=== PATIENT | female | born 1945 | race Caucasian/White ===

== ENCOUNTER → 2018-09-13 | Outpatient (CLI) | payer MEDICARE ==
--- NOTE | 2018-09-13 16:49 | BD ---
EXAMINATION TYPE: Axial Bone Density DATE OF EXAM: 09/13/2018 COMPARISON: 2014 CLINICAL HISTORY: disorder of bone M 85.80 Height: 5'4 Weight: 147 FRAX RISK QUESTIONS: History of Fracture in Adulthood: y Secondary Osteoporosis: 3. Menopause before 43: y RISK FACTORS HISTORY OF: Postmenopausal woman: y MEDICATIONS: Additional Medications: generic for neuro tin Additional History: breast cancer, 2004 radiation, chemo EXAM MEASUREMENTS: Bone mineral densitometry was performed using the [employer] System. Bone mineral density as measured about the Lumbar spine is: ----- L1-L4(G/cm2): 1.192 T Score Values are as follows: ----- L2: -0.6 ----- L3: 0.9 ----- L4: 1.1 ----- L1-L4:0.1 Bone mineral density has: Increased 0.6since study of: 10/14/2015 Bone mineral density about the R hip (g/cm2): 0.857 Bone mineral density about the L hip (g/cm2): 0.785 T Score values are as follows: -----R Neck: -1.3 -----L Neck: -1.8 -----R Total: -0.4 -----L Total: -1.2 Bone mineral density has: Decreased -1.4since study: 10/14/2015 since IMPRESSION: Osteopenia (T Score between -2.5 and -1). There is slightly increased risk of fracture and the patient may be considered for treatment. Re-Screen 2-5 years. NOTE: T-SCORE=SD OF THE YOUNG ADULT MEAN.
== END | disposition home or self-care (01) ==
LOC: RADBDWWP 09:50
PROVIDERS: ATTEND Family Medicine
DX: M85.80 Other specified disorders of bone density and structure, unspecified site (principal)
CPT/HCPCS: 77080

== ENCOUNTER → 2019-09-13 | Outpatient (CLI) | payer MEDICARE ==
[2019-09-13 12:54] VITALS: BP 103/64; PULSE 58; RESP 16
--- NOTE | 2019-09-13 13:42 | P.PAINCN ---
History of Present Illness - Reason for Consult Consult date: 09/13/19 - History of Present Illness This is a very pleasant 74 years old female, with one-year history of severe low back pain with radiation to the posterior aspect of the lower extremity medially to the left, the pain is constant and increases with any activity, she denies any initiating event she denies any motor or sensory deficits, she denies any change in the bowel movement or urination, intensity of the pain 6-7/10 incre ases with any activity, she is currently on pain medication Lerona 5/325 when necessary and Neurontin and both medication is not helping enough to control the pain, she denies any side effect of the medication and she is getting prescription refills from her primary care Past Medical History Past Medical History: Cancer, Osteoarthritis (OA) Additional Past Medical History / Comment(s): breast CA 2003, diptheria. Osteopenia History of Any Multi-Drug Resistant Organisms: None Reported Past Surgical History: Breast Surgery, Orthopedic Surgery, Tubal Ligation Additional Past Surgical History / Comment(s): Thumb surgery. Lumpectomy - 2003. Bilateral shoulder Rotator Cuff Repain Past Anesthesia/Blood Transfusion Reactions: No Reported Reaction Past Psychological History: No Psychological Hx Reported Smoking Status: Former smoker Past Alcohol Use History: Rare Additional Past Alcohol Use History / Comment(s): quit smoking 10 yrs. ago, smoked for 40 yrs. Past Drug Use History: None Reported - Past Family History Mother Family Medical History: Cancer Medications and Allergies Home Medications Medication Instructions Recorded Confirmed Type Gabapentin [Neurontin] 300 mg PO DAILY 11/18/15 09/13/19 History Multivit with Calcium,Iron,Min 1 each PO DAILY 11/18/15 09/13/19 History [Women's Daily Multivitamin] Vitamin B Complex 1 each PO DAILY 11/18/15 09/13/19 History Alendronate Sodium 70 mg PO WEEKLY 09/13/19 09/13/19 History Gabapentin [Neurontin] 1,200 mg PO HS 09/13/19 09/13/19 History HYDROcodone/APAP 5-325MG [Lerona 1 tab PO Q6HR PRN 09/13/19 09/13/19 History 5-325] Magnesium 400 mg PO DAILY 09/13/19 09/13/19 History Allergies Allergy/AdvReac Type Severity Reaction Status Date / Time codeine AdvReac Unknown Verified 09/13/19 12:31 Physical Exam Vitals: Vital Signs Pulse Resp BP Pulse Ox 09/13/19 12:38 58 L 16 103/64 98 Intake and Output 09/12/19 09/13/19 09/13/19 22:59 06:59 14:59 Other: Weight 65.771 kg REVIEW OF ORGAN SYSTEMS: CONSTITUTIONAL: No fevers or chills. No recent weight loss. EYES: History of troubles with vision. No glasses. HEENT: No difficulties with hearing. No nosebleeds. No difficulty swallowing. RESPIRATORY: Past pneumonia. Denies any troubles with breathing or dyspnea on exertion. CARDIOVASCULAR: Denies any chest pain, palpitations, or recent heart attacks. GASTROINTESTINAL: Denies fatty food intolerance. Has change in bowel habits and gas bloat. GENITOURINARY: Denies any blood in urine. Has increased urinary frequency. NEUROLOGICAL: Denies any numbness or tingling along the distal extremities. No seizure disorders or headaches. MUSCULOSKELETAL: back pain, no stiffness or joint arthritis. SKIN: Past t skin cancer. No rash. PSYCHIATRIC: Denies current depression or suicidal thoughts. ENDOCRINE: Denies current thyroid disorders. Denies any blood sugar glucose intolerance. HEME/LYMPHATIC: Denies any lumps and bumps around the neck. History of deep venous thrombosis. ALLERGY/IMMUNOLOGY: No immunoglobulin therapy. No immune deficiencies. BREAST: Denies current breast lumps, pain or nipple discharge. Physical Examinations : Constitutiona : Cooperative , not in acute distress . HEENT : nech : supple , no Lymphadenopathy , normal thyroid size . eyes : no ptosis , no icterus, no photophobia . neurologic : Cranial nerve II to XII intact , no focal neurological deffecit . psychatric : alert , oriented X 3 , appropriate affect , intact judgment and insight . Lymphatic : no Lymphadenopathy . musculoskeltal : Lumber spine moter stegnth lower extremities ,thigh and legs 5/5 Right side , 5/5 Left side deep tendon reflexes : normal Knee Jerk , normal ankle Jerk positive lumber facet Loading Test Range of motion of the lumbar spine Flexion 30 degrees, extension 10 degrees strait leg raising test = negative levi aterally Fabere test = negative bilaterally Sever tenderness over the Sacroiliac joint on the R and L sides Results Comments: MRI of the lumbar spine L2-3 , L3 4, L4 5, L5-S1 bulging disc disease and facet arthropathy and some foraminal stenosis at L4 5 Assessment and Plan Plan: Assessment and plan= chronic severe low back pain secondary to lumbar spondylosis with lumbar facet arthropathy, and lumbar degenerative disc disease Patient would be good candidate to have diagnostic medial branch block lumbar area at L2, L3, L4, L5 x2 and if it was positive Then we will proceed with RFA of the medial branch, the patient should continue her current medication Neurontin and Lerona and she is getting prescriptions from her primary care Time with Patient: Greater than 30 PQRS Measure Charge Sheet Measure #130: Documentation of Current Meds in Medical Chart: Patient's medications documented in chart Measure #226: Tobacco Use: Screen & Cessation Intervention: Pt not a tobacco user Measure #111: Pneumonia Vaccination: Pneumococcal vaccine administered or previously received Measure #47: Advance Care Plan: Advance care planning discussed & documented, pt chose/unable to give Measure #412: Opioid Treatment Agreement: No documentation of signed opioid treatment agreement Measure #408: Opioid Therapy Follow-up Evaluation: Patient had NO f/u eval minimum every 3 months during opioid therapy Measure #317: Preventitive Care & Scrn High Bld Press & F/U: Normal blood pressure, f/u not required Measure #128: Body Mass Index (BMI) Screening & Follow-up: BMI documented within normal parameters Measure #131: Pain Assessment & Follow-up: Pain positive & plan documented, Follow-up scheduled Measure #431: Unhealthy Alcohol Use Preventative Care & Scrn: Patient not identified as an unhealthy alcohol user PQRS Narrative: Smoking Status Former smoker Blood Pressure 103/64 Pain Intensity [Bilateral 6 Lower Back] Scale Used Numeric (1 - 10) Hx Alcohol Use (MH) No Home Medications: Ambulatory Orders Gabapentin [Neurontin] 300 mg PO DAILY 11/18/15 Multivit with Calcium,Iron,Min [Women's Daily Multivitamin] 1 each PO DAILY 11/18/15 Vitamin B Complex 1 each PO DAILY 11/18/15 Alendronate Sodium 70 mg PO WEEKLY 09/13/19 Gabapentin [Neurontin] 1,200 mg PO HS 09/13/19 HYDROcodone/APAP 5-325MG [Lerona 5-325] 1 tab PO Q6HR PRN 09/13/19 Magnesium 400 mg PO DAILY 09/13/19
== END | disposition home or self-care (01) ==
LOC: PNWHC3 12:05
PROVIDERS: ATTEND Specialist
DX: M47.816 Spondylosis without myelopathy or radiculopathy, lumbar region (principal); G89.29 Other chronic pain; M46.96 Unspecified inflammatory spondylopathy, lumbar region; M51.36 Other intervertebral disc degeneration, lumbar region; Z87.891 Personal history of nicotine dependence; Z79.899 Other long term (current) drug therapy; Z79.891 Long term (current) use of opiate analgesic
CPT/HCPCS: 99211

== ENCOUNTER 2019-09-20 08:42 | Day surgery (SDC) | payer MEDICARE ==
[2019-09-18 11:24] VITALS: BMI 24.9
[~2019-09-20 08:42] MED LIST: LACTATED RINGERS 1,000 ML IV SCH
[2019-09-20 09:36] VITALS: TEMP 97
[2019-09-20] MEDS ORDERED: LIDOCAINE 1% 20 ML VIAL (10MG/ML) FOR IV START INTRADERMA ONE (09:45)
--- NOTE | 2019-09-20 11:06 | P.PCN ---
Date of Procedure: 09/20/19 Procedure(s) Performed: PREOPERATIVE DIAGNOSIS : 1- Lumbar spondylosis with Facet Arthropathy without myelopathy . 2- Lumber degenerative disc disease POSTOPERATIVE DIAGNOSIS: 1- Lumbar spondylosis with Facet Arthropathy without myelopathy . 2- Lumber degenerative disc disease PROCEDURE: Diagnostic bilateral L2 ,L3 , L4 , and L5 medial branch block under fluoroscopy guidance(fluoroscopy images available in the radiology Department ) (The target point is bilateral facet L3- 4 , L4- 5 , L5-S1 ) ANESTHESIA: Local with Ropivacain 0.5 % 6 ml , moderate sedation with intravenous Versed 1 mg and Fentanyl 50 mcg. EBL: Minimal COMPLICATION: None. IV FLUIDS: 100 mL of normal saline. PROCEDURE INDICATION: Chronic low back pain secondary to Facet arthropathy unresponsive to conservative treatment. PROCEDURE DESCRIPTION: the patient was seen and identified in the preop holding area , risks and benefits and possible complications of the procedure and alternative were discussed with the patient, and the patient agreed to proceed with the procedure and signed the consent IV was started and vital signs monitored during the procedure and fluoroscopy was used to maximize the benefit and accuracy of the needle placement, and sedation was given to decrease patient anxiety, patient was taken to the procedure room and placed in prone position vital signs monitored in the back prepped with chlorhexidine X3 then under strict sterile technique using a right oblique fluoroscopy ,the junction of the transverse process and the superior articulating process of the right L2 , L3 , L4, and [id number] which corresponding to the fluoroscopy image of the eye of the Luis A dog on the block side for the medial branches and subsequently , after local infiltration of skin and subcu tissuies with Ropivacaine 0.5 % , one mL at each level ,then 25-gauge Quincke-type needles , 4 needle was used , each one of them placed at the junction of the base of the transverse process and the superior articular process at the appropriate level, and the needle was advanced until the periosteum contacted, needle placement confirmed with AP oblique and lateral view and after appropriate needle placement confirmed, and after negative aspiration for heme and CSF and there was no paresthesia 2 mL of Ropivacaine 0.5% mixed with 20 mg Depo-Medrol , then half mL injected at each level after negative aspiration the needle subsequently removed and the same procedure repeated for the left side at left side at L2 , L3, L4 and L5 levels. At the end of the procedure and the needles removed and a bandage applied after the skin was cleaned the cleaning solution patient taken to recovery room in stable condition and monitors in the recovery room for 20-30 minutes and discharged home in stable condition after discharge criteria met and patient will follow up with the pain clinic in 2-4 weeks
[2019-09-20] MEDS ORDERED: IV FLUID CONTINUATION 500 ML IV ONE (11:20)
[2019-09-20 11:43] VITALS: BP 118/59; PULSE 62; RESP 18
--- NOTE | 2019-09-20 11:46 | FL ---
EXAMINATION TYPE: FL guided pain mgmt statistic DATE OF EXAM: 09/20/2019 HISTORY: Pain Facet Block Lumbar Bilateral. Dr. Allen. 12 sec fl time. 4 pics scanned
== END 2019-09-20 11:54 | disposition home or self-care (01) ==
LOC: ORPAIN 08:42
PROVIDERS: ATTEND Specialist
DX: G89.29 Other chronic pain (principal); M47.816 Spondylosis without myelopathy or radiculopathy, lumbar region; M51.36 Other intervertebral disc degeneration, lumbar region; M79.605 Pain in left leg; M85.80 Other specified disorders of bone density and structure, unspecified site; Z79.891 Long term (current) use of opiate analgesic; Z85.3 Personal history of malignant neoplasm of breast; Z79.899 Other long term (current) drug therapy; Z79.83 Long term (current) use of bisphosphonates; Z86.19 Personal history of other infectious and parasitic diseases; Z98.890 Other specified postprocedural states; Z98.51 Tubal ligation status; Z87.891 Personal history of nicotine dependence; Z88.5 Allergy status to narcotic agent; Z80.9 Family history of malignant neoplasm, unspecified
CPT/HCPCS: 64493; 64494; 64495; J2250; J1030; J3010; 99152

== ENCOUNTER → 2019-10-11 | Outpatient (CLI) | payer MEDICARE ==
[2019-10-11 11:52] LABS: African American GFR (CKD) >90 (>60 ml/min/1.73 sqM); Blood Urea Nitrogen 14 mg/dL (7-17); Non-African American GFR(CKD) 86 (>60 ml/min/1.73 sqM)
--- NOTE | 2019-10-11 14:22 | CT ---
EXAMINATION TYPE: CT abdomen pelvis w con DATE OF EXAM: 10/11/2019 COMPARISON: NONE HISTORY: 74-year-old female Enlarged lymph nodes seen on US. Right groin area. TECHNIQUE: Contiguous axial scanning of the abdomen and pelvis following administration of 100 ml Iso denise 300 IV contrast. Delayed images through the kidneys and coronal/sagittal reconstructions perform ed. CT DLP: 1181 mGycm Automated exposure control for dose reduction was used. FINDINGS: Heart upper limits of normal in size without pericardial effusion. Lung bases clear without pleural e ffusion. Small hiatal hernia. A couple tiny subcentimeter hypodensities within the liver, one anterior mid liver and one near the g allbladder fossa likely tiny cysts. Portal venous system is patent. Mild prominence to the bile duct at 6 mm, within normal limits given patient's age. Gallbladder, adrenal glands, right kidney, spleen, and atrophic pancreas show no gross abnormality. Small subcentimeter cortical hypodensity anterior upper pole left kidney too small for accurate CT ch aracterization, likely small cortical cyst. Moderate atherosclerotic calcifications infrarenal abdominal aorta and iliac arteries. No dilated small bowel, free fluid, or free air. Scattered nonenlarged mesenteric lymph nodes and a f ew borderline sized mesenteric lymph nodes measuring up to 7 mm, for example, coronal image 31, proba yvonne reactive/post inflammatory. Normal appendix. Scattered mild stool. Oral contrast progressed to the lower descending colon. Mild l eft-sided colonic diverticulosis. No pericolonic inflammatory change. Bladder not distended. Uterus is anteverted. Small left ovary is visualized. Right ovary not clearly delineated. No abnormal fluid collection pelvis or pelvic lymphadenopathy seen. Prominent right inguinal lymph node measures up to 1.5 cm. Bones: Old healed fracture deformity left pubic rami. Osteopenia. Mild degenerative changes at the hi ps, left SI joint, and the left L5 hemisacralization. Hypertrophic facet arthropathy with grade 1 ant erolisthesis at L3-L4 and moderate to severe degenerative disc disease L4-L5. IMPRESSION: 1. BORDERLINE TO MILDLY ENLARGED 1.5 CM (SHORT AXIS) RIGHT INGUINAL LYMPH NODE IS NONSPECIFIC, POSSIB LY REACTIVE/POST INFLAMMATORY. RECOMMEND CLINICAL OR ULTRASOUND FOLLOW-UP TO ENSURE STABILITY OR RESO LUTION. 2. A FEW SCATTERED BORDERLINE SIZED MESENTERIC LYMPH NODES MEASURE UP TO 7 MM. NO DEFINITE SUSPICIOUS ABDOMINAL LYMPHADENOPATHY. 3. LEFT-SIDED COLONIC DIVERTICULOSIS WITHOUT ACUTE DIVERTICULITIS.
== END | disposition home or self-care (01) ==
LOC: RADCTMAIN 10:21
PROVIDERS: ATTEND Family Medicine
DX: K57.30 Diverticulosis of large intestine without perforation or abscess without bleeding (principal); R59.0 Localized enlarged lymph nodes
CPT/HCPCS: 36415; 74177; 82565; 84520

== ENCOUNTER 2019-10-17 08:47 | Day surgery (SDC) | payer MEDICARE ==
[2019-10-16 09:09] VITALS: BMI 24.9
[2019-10-17 09:44] VITALS: TEMP 97.1
[2019-10-17] MEDS: LACTATED RINGERS 1,000 ML IV SCH ×2 (09:51→10:10)
[2019-10-17] MEDS ORDERED: LIDOCAINE 1% 20 ML VIAL (10MG/ML) FOR IV START INTRADERMA ONE (09:51)
[2019-10-17 10:41] VITALS: RESP 16
--- NOTE | 2019-10-17 10:48 | P.PCN ---
Date of Procedure: 10/17/19 Procedure(s) Performed: PREOPERATIVE DIAGNOSIS : Lumbar spondylosis with Facet Arthropathy without myelopathy POSTOPERATIVE DIAGNOSIS: same PROCEDURE: Second Diagnostic lumbar medial branch block with fluoroscopy at L2, L3, L4, L5 [bilateral] which covers facets L3-4, L4-5 and L5-S1 ANESTHESIA: Local anesthetic; moderate IV sedation with Versed 1 mg, sedation time 17 minutes Fluoroscopy was used for the procedure and images were saved in the radiology portion of the chart. Surgeon: Ki Odell MD PROCEDURE INDICATION: Lumbar back pain without radiculopathy, not responsive to conservative management. PROCEDURE DESCRIPTION: the patient was seen and identified in the preop holding area , risks and benefits and possible complications of the procedure and alternatives were discussed with the patient, and the patient agreed to proceed with the procedure and signed the consent . IV was started , vital signs were monitored during the procedure and fluoroscopy was used to maximize the benefit and accuracy of the needle placement, and sedation was given to decrease patient anxiety. Patient was taken to the procedure room and placed in prone position. The lumbar region was prepped using chlorhexidineX-2. Under strict sterile technique using AP fluoroscopy the bilateral sacral ala were identified and using ipsilateral oblique fluoroscopy ,the junction of the transverse process and the superior articulating process of the L3, L4, L5 vertebra which corresponds to the fluoroscopy image of the eye of the Luis A dog for the medial branches were identified. Subsequently, after local infiltration of skin with lidocaine 1% 0.2 mL at each level , a 25-gauge 3.5" Quincke-type needle was placed at the junction of the base of the transverse process and the superior articular process at the appropriate level as well as the sacral ala, and the needle was advanced until the periosteum contacted, needle placement confirmed with AP and oblique fluoroscopy, 0.2 mL of Isovue 200 per level was injected which revealed no vascular uptake and after negative aspiration, 0.5 mL of lidocaine 4 % was injected at each level and the needle subsequently removed . At the end of the procedure and the needles were removed and a bandage applied after the skin was cleaned. The patient was taken to recovery room in stable condition and monitors in the recovery room for 20-30 minutes and discharged home in stable condition after discharge criteria met and patient will follow up in clinic in 2 weeks EBL: Minimal COMPLICATION: None.
[2019-10-17] MEDS ORDERED: IV FLUID CONTINUATION 1,000 ML IV ONE (10:50)
--- NOTE | 2019-10-17 10:52 | FL ---
Fluoroscopy INDICATION: Pain FINDINGS: Fluoroscopy time: 0.07 minutes Images obtained: 3. IMPRESSIONS: 1. Documentation of fluoroscopy.
[2019-10-17 10:57] VITALS: BP 138/81; PULSE 66
== END 2019-10-17 11:08 | disposition home or self-care (01) ==
LOC: ORPAIN 08:47
PROVIDERS: ATTEND Anesthesiology
DX: M47.816 Spondylosis without myelopathy or radiculopathy, lumbar region (principal)
CPT/HCPCS: 64493; 64494; 64495; J2250; Q9966; 99152

== ENCOUNTER → 2019-10-31 | Outpatient (CLI) | payer MEDICARE ==
[2019-10-31 12:59] VITALS: BP 122/70; PULSE 77; RESP 16
--- NOTE | 2019-10-31 14:15 | P.PAINPG ---
Subjective Progress Note Date: 10/31/19 This is a follow-up visit for this 74 years old female with a chronic history of severe low back pain, she is diagnosed with lumbar spondylosis with lumbar facet arthropathy, and lumbar degenerative disc disease, status post diagnostic medial branch block lumbar area, patient reported that her pain improved significantly after each diagnostic medial branch block, and the pain relief was for short- term only, her pain level was 4/10 for the first diagnostic block dropped to 0/10 and the pain relief lasted more than 1 week, and the pain was 7/10 before the second diagnostic block and the pain dropped to 0, and the pain relief lasted for few hours, currently she is complaining of severe low back pain, she denies any motor or sensory deficit she denies any fever or night sweats Objective - Vital Signs Vital signs: Vital Signs Temp Pulse 77 10/31/19 12:56 Resp 16 10/31/19 12:56 BP 122/70 10/31/19 12:56 Pulse Ox 95 10/31/19 12:56 - Exam Physical Examinations : -Constitutiona : Cooperative , not in acute distress . -HEENT : nech : supple , no Lymphadenopathy , normal thyroid size . : eyes : no ptosis , no icterus, no photophobia . - neurologic : Cranial nerve II to XII intact , no focal neurological deffecit . -psychatric : alert , oriented X 3 , appropriate affect , intact judgment and insight . -Lymphatic : no Lymphadenopathy . - musculoskeltal : Lumber spine moter stegnth lower extremities ,thigh and legs 5/5 Right side , 5/5 Left side deep tendon reflexes : normal Knee Jerk , normal ankle Jerk lumber facet Loading Test =positive Right , positive Left Range of motion of the lumbar spine Flexion 30 degrees, extension 10 degrees strait leg raising test = negative bilaterally Fabere test= negative bilaterally mild tenderness over the Sacroiliac joint on the Right , and Left sides . Assessment and Plan Plan: Assessment and plan=chronic and severe low back pain secondary to lumbar spondylosis with lumbar facet arthropathy, lumbar degenerative disc disease Patient had positive results after the diagnostic medial branch block and she remained good candidate to have RFA of the medial branch lumbar area she will be scheduled to have RFA of the left side at L2,L3,L4,L5, later on we will do the right side Time with Patient: Less than 30 PQRS Measure Charge Sheet Measure #130: Documentation of Current Meds in Medical Chart: Patient's medications documented in chart Measure #226: Tobacco Use: Screen & Cessation Intervention: Pt not a tobacco user Measure #111: Pneumonia Vaccination: Pneumococcal vaccine administered or previously received Measure #47: Advance Care Plan: Advance care planning discussed & documented, pt chose/unable to give Measure #412: Opioid Treatment Agreement: No documentation of signed opioid treatment agreement Measure #408: Opioid Therapy Follow-up Evaluation: Patient had NO f/u eval minimum every 3 months during opioid therapy Measure #317: Preventitive Care & Scrn High Bld Press & F/U: Normal blood pressure, f/u not required Measure #128: Body Mass Index (BMI) Screening & Follow-up: BMI documented within normal parameters Measure #131: Pain Assessment & Follow-up: Pain positive & plan documented, Follow-up scheduled Measure #431: Unhealthy Alcohol Use Preventative Care & Scrn: Patient not identified as an unhealthy alcohol user PQRS Narrative: Smoking Status Former smoker Blood Pressure 122/70 Pain Intensity [Back] 7 Hx Alcohol Use (MH) No Home Medications: Ambulatory Orders Gabapentin [Neurontin] 300 mg PO QAM 11/18/15 Multivit with Calcium,Iron,Min [Women's Daily Multivitamin] 1 each PO DAILY 11/18/15 Vitamin B Complex 1 each PO DAILY 11/18/15 Alendronate Sodium 70 mg PO LEWIS 09/13/19 Gabapentin [Neurontin] 1,200 mg PO HS 09/13/19 Magnesium 400 mg PO DAILY 09/13/19 Latanoprost/Pf [Latanoprost 0.005% Eye Drop] 1 drop RIGHT EYE QAM 09/20/19 Cholecalciferol (Vitamin D3) [Vitamin D3] 2,000 unit PO DAILY 10/29/19 Controlled Substance Measures - Controlled Substance Measures Is patient prescribed a controlled substance at discharge?: No
== END | disposition home or self-care (01) ==
LOC: PNWHC3 12:41
PROVIDERS: ATTEND Specialist
DX: M47.816 Spondylosis without myelopathy or radiculopathy, lumbar region (principal); M46.96 Unspecified inflammatory spondylopathy, lumbar region; M51.36 Other intervertebral disc degeneration, lumbar region; G89.29 Other chronic pain; Z87.891 Personal history of nicotine dependence; Z79.891 Long term (current) use of opiate analgesic; Z79.899 Other long term (current) drug therapy
CPT/HCPCS: 99211

== ENCOUNTER 2019-12-04 08:35 | Day surgery (SDC) | payer MEDICARE ==
[2019-11-29 17:19] VITALS: BMI 25.7
[~2019-12-04 08:35] MED LIST changes: +BUPIVACAINE (PF) 0.5% 30 ML VIAL ONE; +MIDAZOLAM 2 MG/2 ML VIAL ONE; +fentaNYL (PF) 50 MCG/ML 2 ML AMP ONE; +methylPREDNISolone ACETATE 40 MG/ML 1 ML VIAL ONE
[2019-12-04 09:00] VITALS: TEMP 98.1
--- NOTE | 2019-12-04 09:49 | P.PCN ---
Date of Procedure: 12/04/19 Procedure(s) Performed: PREOPERATIVE DIAGNOSIS: 1-Lumbar Spondylosis with Facet Arthropathy without myelopathy. 2- Lumber degenerative disc disease POSTOPERATIVE DIAGNOSIS: 1- Lumbar Spondylosis with Facet Arthropathy without myelopathy. 2- Lumber degenerative disc disease PROCEDURES : Left Radiofrequency thermocoagulation,L2 , L3 , L4 , and L5 medial branch, with fluoroscopic guidance (fluoroscopy images available in the radiology department) ( to denervate the facet joint at L3-4 , L4-5 ,and L5-S1 levels ) ANESTHESIA: Moderate sedation with intravenous versed 2 mg and fentaneyl 100 mcg, and local infiltration with Ropivacaine 0.5 % . EBL: Minimal PROCEDURE INDICATION: The patient with low back pain secondary to lumbar facet arthropathy who had more than 50% relief of her pain with previous diagnostic lumbar medial branch block with bupivacaine. PROCEDURE DESCRIPTION / TECHNIQUE: The patient was seen and identified in the preoperative area. Risks, benefits, complications, including but not limited to risk of infection ,bleeding , allergic reactions to the medications and no complete pain releife , and alternatives were discussed with the patient, the patient agreed to proceed with the procedure and signed the consent. IV was started. Vital signs remained stable throughout the procedure. Patient was taken to the OR and time out was completed. The patient was placed in the prone position on the procedure table. The lumber area was prepped and draped in the usual sterile fashion. . Vital signs were closely monitored during the procedure .IV sedation was used during the procedure to decrease patients anxiety. Using AP and then oblique fluoroscopy, the ``eye of the Luis A dog corresponding to the connection between the superior and transverse articular processes of Left L2 , L3, L4, and L5 were identified, marked, and localized with 1% lidocaine. Subsequently, a 18 [id number] radiofrequency cannula with a 10-mm active tip was advanced guided by fluoroscopy to each of the``eyes of the Luis A dog at Left L2 , L3, L4, and L5. Each site then underwent sensory testing at 50 Hz and 0 to 1 volt and motor testing at 2.5 Hz and 0 to 3 volt with local stimulation, but no radicular symptoms down the legs. Thereafter the Left L2 ,L3, L4 , and L5 sites underwent radiofrequency thermocoagulation at 80 degrees celsius for 90 seconds after injecting 0.5 ml of PF Ropivacaine 1ml, then after the thermocoagulation done , 1 ml of the block solution containing Depo-Medrol 40 mg and 3 ml of Ropivacaine 0.5% was injected at the Left L2 ,L3 , L4 , and L5 , levels after negative aspiration of CSF and blood and with no paresthesias. Cannulas were retracted while injecting lidocaine 1% until the needle is out. At the end of the procedure, the skin was cleansed and bandages were applied. COMPLICATIONS: No acute complications. DISPOSITION / PLANS: The patient was placed in a supine position and transferred to the recovery area in a stable condition for observation and was discharged from the recovery room after meeting discharge criteria. Home discharge instructions given to the patient by the staff. The patient was reexamined prior to discharge. The patient will schedule a follow up in the clinic in 2-4 weeks.
[2019-12-04] MEDS ORDERED: IV FLUID CONTINUATION 1,000 ML IV ONE ×2 (09:54)
[2019-12-04 09:58] VITALS: RESP 18
[2019-12-04 10:20] VITALS: BP 137/77; PULSE 56
--- NOTE | 2019-12-04 11:25 | FL ---
Fluoroscopy HISTORY: Pain 18 seconds fluoroscopy time supplied to the referring clinician. 3 intraoperative C-arm images docum ent the procedure. See dictated report from anesthesia.
== END 2019-12-04 10:33 | disposition home or self-care (01) ==
LOC: ORPAIN 08:35
PROVIDERS: ATTEND Specialist
DX: M47.816 Spondylosis without myelopathy or radiculopathy, lumbar region (principal); M51.36 Other intervertebral disc degeneration, lumbar region; Z88.5 Allergy status to narcotic agent
CPT/HCPCS: 64635; 64636; J2250; J1030; J3010; 99152

== ENCOUNTER → 2021-04-30 | Outpatient (CLI) | payer MEDICARE ==
--- NOTE | 2021-04-30 16:42 | BD ---
EXAMINATION TYPE: Axial Bone Density DATE OF EXAM: 04/30/2021 COMPARISON: NONE CLINICAL HISTORY: Height: 64 Weight: 136.3 FRAX RISK QUESTIONS: Alcohol (3 or more units per day): no Family History (Parent hip fracture): no Glucocorticoids (More than 3mos): no (Ex: prednisone, prednisolone, methylprednisolone, dexamethasone, and hydrocortisone). History of Fracture in Adulthood: yes Secondary Osteoporosis: 1. Type 1 Diabetes: no 2. Hyperthyroidism: no 3. Menopause before 45: yes 4. Malnutrition: no 5. Chronic liver disease: no Rheumatoid Arthritis: no Current Tobacco Use: no RISK FACTORS HISTORY OF: History of Wrist Fracture: left When: 2003 Surgery to Spine/Hip(right/left)/Wrist (right/left): no Family History of Osteoporosis: no Active: yes Diet low in dairy products/other sources of calcium: no Postmenopausal woman: age 37 Lost more than 2 inches in height since high school: no MEDICATIONS: gabapentin, calcium Additional History: EXAM MEASUREMENTS: Bone mineral densitometry was performed using the [facility]. Bone mineral density as measured about the Lumbar spine is: ----- L1-L4(G/cm2): 1.174 T Score Values are as follows: ----- L2: -1.1 ----- L3: -0.4 ----- L4: 1.6 ----- L1-L4: -0.1 Bone mineral density has: decreased -3.1 % since study of: 09.13.2018 Bone mineral density about the R hip (g/cm2): 0.872 Bone mineral density about the L hip (g/cm2): 0.824 T Score values are as follows: -----R Neck: -1.2 -----L Neck: -1.5 -----R Total: -0.1 -----L Total: -0.9 Bone mineral density has: increased 4.4 % since study of: 09.13.2018 IMPRESSION: Osteopenia (T Score between -2.5 and -1). There is slightly increased risk of fracture and the patient may be considered for treatment. Re-Screen 2-5 years. NOTE: T-SCORE=SD OF THE YOUNG ADULT MEAN.
== END | disposition home or self-care (01) ==
LOC: RADBDWWP 10:08
PROVIDERS: ATTEND Family Medicine
DX: Z13.820 Encounter for screening for osteoporosis (principal); M85.89 Other specified disorders of bone density and structure, multiple sites; Z78.0 Asymptomatic menopausal state
CPT/HCPCS: 77080

== ENCOUNTER → 2022-03-16 | Outpatient (CLI) | payer MEDICARE ==
--- NOTE | 2022-03-16 22:15 | US ---
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 EXAM MEASUREMENTS: Right Kidney: 8.5 x 3.8 x 5.2 cm Left Kidney: 9.9 x 5.5 x 6.0 cm Right Kidney: No hydronephrosis or masses seen Left Kidney: cyst measures 1.3 x 1.0 x 1.1 cm Bladder: wnl Bilateral Jets seen: Yes There is no evidence for hydronephrosis at this point in time. No nephrolithiasis is seen. There is central 1.3 cm benign thin-walled parapelvic cyst left kidney mid to lower pole level corresponding t o axial image 31 series [address] The urinary bladder is satisfactorily distended. Bilateral u reteral jets are seen. IMPRESSION: No concerning solid or cystic renal mass identified on today's study.
== END | disposition home or self-care (01) ==
LOC: RADUSWWP 12:01
PROVIDERS: ATTEND Family Medicine
DX: D41.00 Neoplasm of uncertain behavior of unspecified kidney (principal)
CPT/HCPCS: 76770

== ENCOUNTER → 2022-06-30 | Outpatient (CLI) | payer MEDICARE ==
--- NOTE | 2022-07-05 08:34 | MM ---
Reason for Exam: Screening (asymptomatic). Last screening mammogram was performed 12 month(s) ago. Patient History: Menarche at age 12. First Full-Term at age 17. Postmenopausal. Breast cancer, right, age 59. Breast cancer, left, age 76. Previous chest radiation therapy at age 59. Previous chemotherapy at age 59. 11/30/2003, Lumpectomy on the Right side. 07/05/2021, Lumpectomy on the Left side. 06/21/2021, Malignant US biopsy breast VAD LT - 2 on the left side. Core Biopsy on the Right side. Excisional Biopsy on the Right side. 10/23/2004, Malignant Stereotactic Core Biopsy on the right side. Maternal aunt had breast cancer, age 40. Mother had breast cancer, age 70. Prior Study Comparison: 03/10/2004 Bilateral Screening Mammogram, [place]. 03/25/2004 Right Special View Mammogram, [facility]. 09/29/2004 Right Special View Mammogram, [facility]. Tissue Density: The breast tissue is heterogeneously dense. This may lower the sensitivity of mammography. Findings: Analyzed By CAD. Postsurgical and posttreatment change on both sides, the left being more recent and this being the first exam after surgery. Recommend 6 month follow-up diagnostic left breast mammogram to assess for any evolving posttreatment change. Benign bilateral oil cyst and vascular calcifications redemonstrated. Otherwise, no significant change. Overall Assessment: Probably benign, BI-RAD 3 Management: Diagnostic Mammogram of the left breast in 6 months. 1. Patient should continue monthly self breast exams. 2. A clinical breast exam by your physician is recommended on an annual basis. 3. This exam should not preclude additional follow-up of suspicious palpable abnormalities. Electronically signed and approved by: Latisha Cobb M.D. Radiologist
== END | disposition home or self-care (01) ==
LOC: RADMAMWWP 12:46
PROVIDERS: ATTEND Internal Medicine Hematology & Oncology
DX: Z12.31 Encounter for screening mammogram for malignant neoplasm of breast (principal); Z78.0 Asymptomatic menopausal state; Z80.3 Family history of malignant neoplasm of breast; Z85.3 Personal history of malignant neoplasm of breast
CPT/HCPCS: 77063; 77067

== ENCOUNTER → 2022-09-10 | Outpatient (CLI) | payer MEDICARE ==
--- NOTE | 2022-09-10 14:49 | CT ---
EXAMINATION TYPE: CT chest w con DATE OF EXAM: 09/10/2022 COMPARISON: None HISTORY: 77-year-old female R93.89, R2 2.9, Z80.3, hx of breast cancer. Surgical hx of lumpectomy. TECHNIQUE: Contiguous axial scanning of the chest after the administration of 70mL mL of Isovue 300. Coronal/sagittal reconstructions performed. CT DLP: 137.30mGycm. Automatic exposure control utilized for a dose reduction. FINDINGS: The breasts show surgical change on both sides, corresponding trabecular and skin thickening on the l eft. Mild pectus excavatum deformity. Heart mildly enlarged without pericardial effusion. Atelectatic aortic root at 3.6 cm. Ectatic ascending aorta 3.7 cm. Mild atherosclerotic arch calcific ations. Conventional arch was a branching anatomy. No thoracic lymphadenopathy by CT size criteria. Lungs show extensive peribronchial vascular and peripheral groundglass changes especially in the mid and lower lungs with some superimposed distortion of the lung parenchyma. There is a 8 mm subpleural pulmonary nodule anteromedial right mid lung with some central calcificati on, suspected calcified granuloma. Dense band of consolidation anterior left upper lobe likely posttreatment cicatricial atelectasis. No pleural effusion. Visualized upper abdomen shows moderate to large stool. Correlate for constipation. Bones: No osseous destructive process. IMPRESSION: 1. Postsurgical and posttreatment change both breasts. Corresponding trabecular and skin thickening o n the left compatible with more recent posttreatment change. A dense band of opacity within the anter ior left upper lobe underlying the left breast likely corresponds to secondary volume loss and scarri ng in the lung. 2. Extensive bilateral mid and lower lung predominant groundglass opacities. Correlate for COVID pneu monia and likely some underlying postinfectious scarring. Follow-up in 2-3 months to assess for any c learance.
== END | disposition home or self-care (01) ==
LOC: RADCTMAIN 09:43
PROVIDERS: ATTEND Family Medicine
DX: R91.8 Other nonspecific abnormal finding of lung field (principal); R93.89 Abnormal findings on diagnostic imaging of other specified body structures; Z80.3 Family history of malignant neoplasm of breast
CPT/HCPCS: 82565; 84520; 71260; 36415; Q9967

== ENCOUNTER → 2022-12-13 | Outpatient (CLI) | payer MEDICARE ==
--- NOTE | 2022-12-13 13:36 | CT ---
EXAMINATION TYPE: CT chest wo con CT DLP: 356 mGycm, Automated exposure control for dose reduction was used. DATE OF EXAM: 12/13/2022 12:36 PM COMPARISON: CT chest 09/10/2022. CLINICAL INDICATION:Female, 77 years old with history of R91.8 OTHER NONSPECIFIC ABNORMAL FINDING OF LUNG F; TECHNIQUE: Multiple axial images were obtained through the chest without IV contrast. Lack of IV or o ral contrast limits evaluation of solid and hollow organ viscera. FINDINGS: LUNGS/ PLEURA: Biapical pleural-parenchymal scarring. Resolution of previously demonstrated bibasilar groundglass opacities. Stable dense band of consolidation anterior left upper lobe likely post treat ment psychiatric or atelectasis. No pleural effusion or pneumothorax. Stable 8 mm subpleural pulmonar y nodule anteromedial right mid lung with some central calcification, suspected calcified granuloma. No new or enlarging pulmonary nodules. AIRWAY: Patent and unremarkable.. HEART: The heart is mildly increased in size.. No pericardial effusion. MEDIASTINUM: No gross evidence of adenopathy. VASCULATURE: No aortic aneurysm. At the sclerotic calcification of the aorta and its branches. MUSCULOSKELETAL: No acute osseous abnormalities. Mild pectus excavatum deformity. No aggressive osseo us lesion. SOFT TISSUES/LYMPH NODES: No axillary adenopathy. Postsurgical changes of both breasts. LOWER NECK: No significant findings. UPPER ABDOMEN: No significant findings. IMPRESSION: 1. Resolution of previously demonstrated extensive bilateral mid and lower lung groundglass opacities . 2. Stable 8 mm right midlung subpleural pulmonary nodule with central calcification, suspect a calcif ied granuloma. No new or enlarging pulmonary nodules. 3. Posttreatment changes of both breasts with the left upper lobe band of consolidation likely repres enting posttreatment change, unchanged.
== END | disposition home or self-care (01) ==
LOC: RADCTMAIN 12:05
PROVIDERS: ATTEND Family Medicine
DX: J98.4 Other disorders of lung (principal); R91.8 Other nonspecific abnormal finding of lung field
CPT/HCPCS: 71250

== ENCOUNTER 2023-07-08 11:43 | Day surgery (SDC) | payer MEDICARE ==
[2023-07-05 15:49] VITALS: BMI 19.7
[2023-07-08] MEDS ORDERED: LIDOCAINE 1% (10MG/ML) FOR IV START INTRADERMA PRN (11:56)
[2023-07-08] MEDS ORDERED: LACTATED RINGERS 1,000 ML IV SCH (11:56)
[2023-07-08 12:13] VITALS: RESP 16; TEMP 97.3
[2023-07-08] MEDS ORDERED: LIDOCAINE 2% INJ 20 MG/ML (2 ML VIAL) ONE (13:26)
[2023-07-08] MEDS ORDERED: PROPOFOL 10 MG/ML 20 ML VIAL IV ONE (13:26)
--- NOTE | 2023-07-08 13:48 | P.PCN ---
Date of Procedure: 07/08/23 Procedure(s) Performed: BRIEF HISTORY: Patient is a 78-year-old pleasant white female scheduled for an elective colonoscopy as a part of value should of chronic diarrhea for the last 3 years duration. She has bowel movements anywhere from 4-10 day which are loose to watery in consistency. No blood or mucus in the stool. PROCEDURE PERFORMED: Colonoscopy With random biopsy PREOPERATIVE DIAGNOSIS:Chronic diarrhea of 23 years duration.]. IV sedation per Anesthesia. PROCEDURE: After informed consent was obtained, the patient, was brought into the endoscopy unit. IV sedation was administered by Anesthesia under continuous monitoring. Digital rectal examination was normal. Initially the Olympus CF-160 flexible video colonoscope was then inserted in the rectum, gradually advanced into the cecum without any difficulty. Careful examination was performed as the scope was gradually being withdrawn. Ileocecal valve and the appendiceal orifice were visualized and appeared normal. Prep was excellent. Mucosa of the cecum, ascending colon, transverse colon, descending colon, sigmoid colon, and rectum appeared normal. random biopsies were done from ascending and descending colon to rule out microscopic/collagenous colitis. Scattered sigmoid diverticulosis. Retroflexion was performed in the rectum and no lesions were seen. The patient tolerated the procedure well. IMPRESSION: Normal-appearing colon from rectum to cecum no evidence of colorectal neoplasia Scattered sigmoid diverticulosis . RECOMMENDATIONS: Findings of this examination were discussed with the patientas well as a family. she was advised to follow with the biopsies and she'll be seen in office in 2-3 weeks..
[2023-07-08 14:11] VITALS: BP 89/72; PULSE 67
== END 2023-07-08 14:40 | disposition home or self-care (01) ==
LOC: ORWHC2ENDO 11:43
PROVIDERS: ATTEND Internal Medicine Gastroenterology
DX: K52.832 Lymphocytic colitis (principal); M19.90 Unspecified osteoarthritis, unspecified site; K57.30 Diverticulosis of large intestine without perforation or abscess without bleeding; Z79.899 Other long term (current) drug therapy; Z79.811 Long term (current) use of aromatase inhibitors; Z88.8 Allergy status to other drugs, medicaments and biological substances
CPT/HCPCS: 88305; 45380; J2704; J2001

== ENCOUNTER → 2024-01-09 | Outpatient (CLI) | payer MEDICARE ==
--- NOTE | 2024-01-09 09:07 | US ---
EXAMINATION TYPE: US arterial LE single level DATE OF EXAM: 01/09/2024 8:40 AM CLINICAL INDICATION: Female, 78 years old with history of I73.9 PERIPHERAL VASCULAR DISEASE, UNSPECIF IED; right hip and leg pain, symptoms relate to lumbar spine surgery that she is having soon History of: Smoker: previous 20 years ago Hypertension: n Diabetic: n Hyperlipidemia: n TIA/CVA: n Previous Vascular Surgery: n CAD: n KS: n Vascular Ulcers: n Claudication: n Gangrene: n Doppler Waveforms: Right: Multiphasic Left: Multiphasic Right Brachial Pressure: 127 Left Brachial Pressure: 127 Ankle-Brachial Indices: Right: 1.1 Left: 1.1 Toe Brachial Indices: Right: 0.3 Left: 0.3 IMPRESSION: 1. Ankle-brachial indices within normal limits. 2. Toe brachial indices suggestive of severe disease.
== END | disposition home or self-care (01) ==
LOC: RADUSWWP 08:14
PROVIDERS: ATTEND Family Medicine
DX: I73.9 Peripheral vascular disease, unspecified (principal)
CPT/HCPCS: 93922

== ENCOUNTER → 2024-01-09 | Outpatient (CLI) | payer MEDICARE ==
[2024-01-09 10:00] LABS: Partial Thromboplastin Time 25.6 sec (22.0-30.0); Prothrombin Time 11.2 sec (10.0-12.5)
--- NOTE | 2024-01-09 10:15 | XR ---
EXAMINATION TYPE: XR chest 2V DATE OF EXAM: 01/09/2024 9:38 AM CLINICAL INDICATION:Female, 78 years old with history of Z01.818 pre surgical testing; [facility] COMPARISON: Chest radiographs from 05/14/2013 TECHNIQUE: XR chest 2V Frontal and lateral views of the chest. FINDINGS: Lungs/Pleura: There is no evidence of pleural effusion, focal consolidation, or pneumothorax. Pulmonary vascularity: Unremarkable. Heart/mediastinum: Cardiomediastinal silhouette is unremarkable. Musculoskeletal: No acute osseous pathology. Other findings: Surgical clips project over the breast. IMPRESSION: No acute cardiopulmonary disease/process.
[2024-01-09 14:53] LABS: Basophils # (A) 0.12 X 10*3/uL (0.00-0.10); Basophils % (A) 2.3 %; Eosinophils # (A) 0.69 X 10*3/uL (0.04-0.35); Eosinophils % (A) 13.1 %; HCT 38.8 % (37.2-46.3); HGB 12.8 g/dL (12.0-15.0); Lymphocytes # (A) 0.77 X 10*3/uL (0.90-5.00); Lymphocytes % (A) 14.7 %; MCH 32.3 pg (27.0-32.0); Mean Platelet Volume 10.8 FL (9.5-12.2); Monocytes # (A) 0.51 X 10*3/uL (0.20-1.00); Monocytes % (A) 9.7 %; NRBC Per 100 WBC 0 X 10*3/uL (0.00-0.01); Neutrophils # (A) 3.15 X 10*3/uL (1.80-7.70); Platelet Count 217 X 10*3/uL (140-440); RBC 3.96 X 10*6/uL (4.10-5.20); RDW 12.2 % (11.5-14.5); WBC 5.25 X 10*3/uL (4.50-10.00)
[2024-01-09 15:28] LABS: BUN/Creat Ratio 16.12 Ratio (12.00-20.00); Blood Urea Nitrogen 12.9 mg/dL (9.0-27.0); Calcium 10.1 mg/dL (8.7-10.3); Carbon Dioxide 30.5 mmol/L (21.6-31.8); Chloride 102 mmol/L (96-109); Glucose 80 mg/dL (70-110); Potassium 4.3 mmol/L (3.5-5.5); Sodium 144 mmol/L (135-145)
[2024-01-09 15:35] LABS: Appearance,Urine Clear (Clear); Bilirubin,Urine Negative (Negative); Blood,Urine Negative (Negative); Color,Urine Yellow (Yellow); Ketones,Urine Negative (Negative); Nitrite,Urine Negative (Negative); Specific Gravity,Urine 1.005 (1.001-1.030); Urobilinogen,Urine 0.2 E.U./DL
== END | disposition home or self-care (01) ==
LOC: LABPAT 08:44
PROVIDERS: ATTEND Orthopaedic Surgery Orthopaedic Surgery of the Spine
DX: Z01.812 Encounter for preprocedural laboratory examination (principal); Z22.322 Carrier or suspected carrier of Methicillin resistant Staphylococcus aureus; M43.10 Spondylolisthesis, site unspecified; I49.8 Other specified cardiac arrhythmias; I23.2 Ventricular septal defect as current complication following acute myocardial infarction; R94.31 Abnormal electrocardiogram [ECG] [EKG]
CPT/HCPCS: 71046; 80048; 81003; 85025; 85610; 85730; 86850; 86900; 86901; 87070; 93005

== ENCOUNTER 2024-01-18 09:41 | Observation (INO) | payer MEDICARE ==
[2024-01-16 09:35] VITALS: BMI 19.7
[2024-01-18] MEDS ORDERED: fentaNYL (PF) 50 MCG/ML 2 ML AMP IV PRN (09:57)
[2024-01-18] MEDS: LACTATED RINGERS 1,000 ML IV SCH (10:04)
[2024-01-18] MEDS: ONDANSETRON 4 MG/2 ML VIAL IVP ONE (10:28)
[2024-01-18] MEDS ORDERED: PHENYLEPHRINE-0.9% NACL SYG 1,000 MCG/10 ML SYRINGE ONE (10:57)
[2024-01-18] MEDS ORDERED: SUCCINYLCHOLINE CHLORIDE 200 MG/10 ML VIAL IV ONE (10:57)
[2024-01-18] MEDS ORDERED: HYDROmorphone (PF) 1 MG/ML ONE (10:57)
[2024-01-18] MEDS ORDERED: fentaNYL (PF) 50 MCG/ML 2 ML AMP ONE (10:57)
[2024-01-18] MEDS ORDERED: PROPOFOL 10 MG/ML 20 ML VIAL IV ONE (10:57)
[2024-01-18] MEDS ORDERED: ROCURONIUM 10 MG/ML (5 ML VIAL) IV ONE (10:57)
[2024-01-18] MEDS ORDERED: MIDAZOLAM 2 MG/2 ML VIAL ONE (10:57)
[2024-01-18] MEDS ORDERED: LIDOCAINE 1% INJ 10MG/ML (20 ML MDV) ONE (10:57)
[2024-01-18] MEDS: ceFAZolin 1,000 MG in SODIUM CHLORIDE 0.9% IRRIGATIO 1,000 ML IRRIGATION PRN (11:02)
[2024-01-18] MEDS: LIDOCAINE 2%-EPI 1:100,000 20 ML VIAL SQ ONE ×2 (11:02→11:38)
[2024-01-18] MEDS: GELATIN SPONGE,ABSORB (LARGE) 1 EACH SPONGE TOPICAL ONE (11:02)
[2024-01-18] MEDS: THROMBIN (BOVINE) 5,000 UNIT VIAL TOPICAL ONE (11:02)
[2024-01-18] MEDS: BUPIVACAINE (PF) 0.25% 30 ML VIAL SQ ONE ×2 (11:02→11:38)
[2024-01-18] MEDS: LACTATED RINGERS 1,000 ML IV ONE ×2 (13:47→14:21)
[2024-01-18] MEDS ORDERED: ACETAMINOPHEN TAB 325 MG TAB PO PRN (14:45)
[2024-01-18] MEDS ORDERED: BENZOCAINE/MENTHOL LOZENG 1 EACH LOZENGE MUCOUS MEM PRN (14:45)
[2024-01-18] MEDS ORDERED: traMADol 50 MG TAB PO PRN (14:45)
[2024-01-18] MEDS ORDERED: PSYLLIUM HUSK 100% 6 GM PACKET PO PRN (14:49)
--- NOTE | 2024-01-18 14:55 | P.OP ---
Date of Procedure: 01/18/24 Preoperative Diagnosis: Spondylolisthesis L3-4, spinal stenosis L3-4 L4-5, degenerative disc disease, lower extreme radiculopathy, lower extremity weakness, facet arthrosis Postoperative Diagnosis: Same Anesthesia: GETA Pathology: none sent Condition: stable Disposition: PACU Description of Procedure: DESCRIPTION OF PROCEDURE(S): BRIEF OPERATIVE NOTE Preoperative Diagnosis: Spondylolisthesis L3-4, spinal stenosis L3-4 L4-5, degenerative disc disease, lower extreme radiculopathy, lower extremity weakness, facet arthrosis Postoperative Diagnosis: Same Procedure: Laminectomy and decompression L3-4 L4-5 beyond the scope of preparation for fusion with bilateral foraminotomies partial medial facetectomy on the right Computer CT navigation aided Minimally invasive Posterior lateral decompression and facet fusion L3-4 L4-5 Minimally invasive Transforaminal lumbar interbody fusion for a 360 fusion L3-4 L4-5 Discectomy for decompression L3-4 L4-5 beyond the scope of preparation for fusion Placement of interbody graft L3-4 L4-5 Use of computer navigation for fusion Local autogenous bone grafting Aspiration of bone marrow from the vertebral body pedicle L3 on the right Use of bone graft extenders Surgeon: Dr. Cagle Enamel Applier: Eliu CHAPA who is present throughout the entire the case persistence during positioning, dissection, exposure, visualization, and all crucial elements of the case as well as closure. Anesthesia: General anesthesia per Dr. Lane Estimated blood loss: Approximately 200 mL Complications: None apparent Components implanted: K2M minimally invasive [place] pedicle screw system withscrews measuring 5.5 mm and 6.5 mm in diameter to rods one expandable interbody cage and 1 [place] interbody cage with 10 mL of osteo amp bio4 bone graft substitute and 30 mL of the BX bone fibers to supplement the local autogenous bone graft and bone marrow aspirate Disposition: To recovery room in good stable condition. OPERATIVE INDICATIONS The patient has had severe issues at their lower extremity in her lower back over the past several years with significant worsening over the past several months. Over the past few months the patient had pain at their back and their lower extremities. The patient is having severe radicular symptoms at their lower extremity with weakness. The patient is having significant pain in their back. They are unable to obtain any comfort. We did aggressive conservative treatment with medications therapy and interventional pain management however thery were not having any relief. The patient also showed evidence of a listhesis with some dynamic instability. She had significant degenerative changes which correlated well with her low back and lower extremity symptoms. There is significant listhesis at L3-4 and evidence of severe stenosis L3-4 and L4-5. The patient has been through conservative treatment. We discussed various treatment options including surgery, and the patient wishes to proceed with surgery We discussed the risk, patient's alternatives and benefits of surgery including but not limited to, risk of bleeding risk of infection, risk of need for further surgery, risk of decreased, loss of motion, muscle function, malunion nonunion, hardware failure, nerve damage, paralysis, heart attack, blindness and . They understood issues with the current pandemic and the possibility of exposure. OPERATIVE SUMMARY After discussing all the risks, patient alternatives and benefits at length, the patient elected to proceed with surgical intervention, signed informed consent, and presented for their procedure. The patient was seen and examined in the preoperative holding area and the surgical site was marked. The patient was given antibiotics and brought to the operating room. The patient was sedated and intubated by anesthesia in standard fashion. The patient was positioned on to the operating room table in a prone position on the appropriate frame which was well-padded and well molded. We were careful to pad any bony prominences and pressure points. We were careful to maintain the patient's cervical spine and good neutral alignment and position throughout. The patient was prepped and draped in a normal standard fashion. An appropriate timeout and keystone protocol performed. We were able to proceed with the surgery. The local wound area was infiltrated with local anesthetic. Over the right iliac crest I was able to make small stab incisions and establish a guidepin screw fixation to the iliac crest 2. I was able place the computer referencing device over the guidepins to establish an appropriate reference point for the Ziem CT navigation. We then were able to place patient in an appropriate drape and do a navigation spin for visualization and 3-D reconstruction of the lumbar spine. I was able utilize C-arm guidance and navigation to establish appropriate position over the pedicles bilaterally at the appropriate levels at L3-4 and 5. With the appropriate levels confirmed was able to make small incisions over the appropriate pedicle sites bilaterally. Utilizing the computer navigation device I was able to establish bony landmarks at the right iliac crest for a bony reference point for the navigation device. I was able to establish a Jamshidi needle over the lateral aspect of the pedicle and advanced the trocar into the pedicle being careful not to breech superiorly inferiorly medially or laterally using computer navigation device. Position was confirmed regularly with AP and lateral images on C-arm and with the computer navigation device at the appropriate levels bilaterally at L3-4 and 5. I was able to establish the trocar into the pedicle appropriately into the posterior aspect of the vertebral body bilaterally at the appropriate levels. This was done at each of the pedicle positions and each of the vertebrae. At the superior vertebrae of L3 on the right I was able to take approximately 25 mL of bone aspiration for use later in the case to supplement the allograft and autograft bone. I was able place the guidewire into the trocar and into the vertebral body appropriately under C-arm guidance. Dissection was taken down over the wire to the appropriate starting position for the screw placed. The appropriate length screw was chosen, threaded over the guidewire and screwed appropriately into the pedicle and vertebral body under C-arm guidance in excellent alignment and position with good bony purchase. This is done at each of the screw sites at the appropriate levels at L3-4 and 5. With the screws intact I extended the incision to connect the screw hole sites on the most symptomatic side on the right. I dissected down to establish access over the pars and lamina to the base of the spinous process. I was able to expose the facet joint. There is evidence of severe facet arthrosis bilaterally at L3-4 and L4-5 and large osteophytes were taken down. On the right side I proceeded with the further complete facetectomy. The capsule the facet was taken down and showed some facet arthrosis at the joint. I was able to use a combination of curettes and Kerrison rongeurs and a high-speed drill to take down the facet joint and do a facetectomy. I was able get excellent foraminal decompression and central decompression with undermining across midline to perform a laminectomy centrally and contralaterally. I was able get good central decompression at each level. The ligamentum flavum was taken down to further decompress centrally and at bilateral neural foramen. I was able to expose the disc space and visualize the traversing nerve root. Note was made of some disc protrusion and disc herniation that was abutting the traversing nerve root at the level causing further compression of the nerve root. I was able to establish a annulotomy at the appropriate level protecting soft tissue and neural structures. Note was made of some disc desiccation at the disc. I performed a complete discectomy with accommodation of curettes and rasps and scrapers. I was able get good endplate preparation at the disc space. I sized for the appropriate size interbody spacer protecting the soft tissue and neural structures. The wound was copiously irrigated and suctioned dry. There is no evidence of any dural tear or leak. I was able to pack the disc space with local autogenous bone graft as well as a small amount of bone graft which was also placed into the interbody cage itself. Protecting the soft tissue structures and neural structures I was able place the interbody cage in good alignment and good position with good fit and fill at the interbody space. Position was confirmed with C-arm guidance. Good hemostasis maintained. There is no evidence of any dural tear or leak. The wound was irrigated and suctioned dry. With the hardware intact, intraoperative C-arm imaging was again taken which showed good alignment and position of the hardware at the appropriate levels at L3-L4 and L5. We were then able to measure, contour and place the rods and appropriate hardware bilaterally. I was able to place capcrews, tighten them down, and torque them with the torque screwdriver appropriately. With this intact I was able to place the local autogenous bone graft with additional bone graft enhancer as necessary into the posterior lateral gutters over the decorticated transverse processes and facet joints on the contralateral side. The remainder of the bone graft was placed over the facet joint on the contralateral side after taking down the facet joint capsule. With the bone graft intact, a stable construct, and good decompression at the appropriate levels, we were able to proceed with closure. Good hemostasis was maintained. There is no evidence of dural tear or leak. The fascia was closed for a watertight closure. he subcuticular tissue was closed with absorbable suture. The wound was cleaned and dried and dressed with the appropriate dressing. The drapes were broken down. The patient was gently rolled back onto their hospital bed being careful to maintain their cervical spine and good neutral alignment and position. They were woken up by anesthesia, extubated, and brought to the recovery room in good stable condition. The patient will be admitted to the hospital for appropriate postoperative care, medical management and monitoring. We will continue to follow them closely about the postoperative course.
--- NOTE | 2024-01-18 14:58 | FL ---
EXAMINATION TYPE: FL guidance operating room, XR lumbar spine 2 or 3V Intraoperative/procedural fluor oscopic services were provided. Total fluoroscopy time is 27 seconds with a total of 5 submitted imag es to PACS. Please see the operative/procedural note for further details. DAP: 1568 cGycm2
[2024-01-18] MEDS: HYDROmorphone 0.5 MG/0.5 ML SYRINGE IVP ONE ×3 (15:17→15:51)
[2024-01-18] MEDS: MEPERIDINE 50 MG/ML SYRINGE IVP ONE (16:18)
[2024-01-18] MEDS: HYDROcodone/APAP 5-325MG 1 EACH TAB PO PRN (17:51)
[2024-01-18] MEDS: GABAPENTIN 300 MG CAP PO SCH (20:28)
[2024-01-18] MEDS: MELATONIN 5 MG TABLET PO SCH (20:28)
[2024-01-18] MEDS: POTASSIUM CHLORIDE ER 10 MEQ TAB.ER.PRT PO SCH (20:28)
[2024-01-18] MEDS: MAGNESIUM OXIDE 400 MG TAB PO SCH (20:28)
[2024-01-18] MEDS: HYDROmorphone 0.5 MG/0.5 ML SYRINGE IVP PRN (20:29)
[2024-01-18] MEDS: CYCLOBENZAPRINE 5 MG TAB PO PRN (23:50)
[2024-01-19] MEDS: HYDROmorphone 1 MG/ML 1 ML SYRINGE IVP PRN (00:46)
[2024-01-19] MEDS: SODIUM CHLORIDE 0.9% 1,000 ML IV SCH (00:46)
[2024-01-19] MEDS: BRIMONIDINE TARTRATE 0.2% DROPS 5 ML BTL RIGHT EYE SCH (02:47)
[2024-01-19] MEDS: MULTIVITAMINS, THERA 1 EACH TAB PO SCH (07:52)
[2024-01-19] MEDS: SENNOSIDES-DOCUSATE SODIUM 1 EACH TAB PO SCH (07:53)
[2024-01-19] MEDS: LATANOPROST 0.005% OPHTH DROPS 2.5 ML BTL RIGHT EYE SCH (07:53)
[2024-01-19] MEDS: GABAPENTIN 300 MG CAP PO SCH (07:53)
[2024-01-19] MEDS: CALCIUM CARBONATE 500 MG CHEWABLE PO SCH (07:53)
[2024-01-19 08:43] LABS: BUN/Creat Ratio 13.29 Ratio (12.00-20.00); Blood Urea Nitrogen 9.3 mg/dL (9.0-27.0); Carbon Dioxide 25.6 mmol/L (21.6-31.8); Chloride 100 mmol/L (96-109); Glucose 86 mg/dL (70-110); Potassium 3.7 mmol/L (3.5-5.5); Sodium 137 mmol/L (135-145)
[2024-01-19 08:44] LABS: Calcium 8.1 mg/dL (8.7-10.3)
[2024-01-19 08:49] LABS: Basophils # (A) 0.05 X 10*3/uL (0.00-0.10); Basophils % (A) 0.6 %; Eosinophils # (A) 0.35 X 10*3/uL (0.04-0.35); Eosinophils % (A) 4.3 %; HGB 10.3 g/dL (12.0-15.0); Lymphocytes # (A) 0.64 X 10*3/uL (0.90-5.00); Lymphocytes % (A) 7.9 %; MCH 32.3 pg (27.0-32.0); MCHC 33.2 g/dL (32.0-37.0); MCV 97.2 FL (80.0-97.0); Mean Platelet Volume 11.2 FL (9.5-12.2); Monocytes # (A) 0.77 X 10*3/uL (0.20-1.00); Monocytes % (A) 9.5 %; NRBC Per 100 WBC 0 X 10*3/uL (0.00-0.01); Neutrophils # (A) 6.27 X 10*3/uL (1.80-7.70); Neutrophils % (A) 77.3 %; Platelet Count 177 X 10*3/uL (140-440); RBC 3.19 X 10*6/uL (4.10-5.20); RDW 12.3 % (11.5-14.5); WBC 8.11 X 10*3/uL (4.50-10.00)
[2024-01-19] MEDS ORDERED: ALBUTEROL NEBULIZED 2.5 MG/3 ML INHALATION PRN (09:43)
--- NOTE | 2024-01-19 09:46 | P.PN ---
Progress Note - Text Progress Note Date: 01/19/24 Postoperative day #1 Patient is seen and examined today at bedside. The patient has some pain around the surgical site as expected. Pain is being controlled with medication. She is tolerating her diet. Physical Exam Afebrile with stable vital signs Abdomen is soft nontender. Chest has good excursion deep and space expiration The incision site is clean dry and intact. No erythema there is no purulence. Extremities have not had neurologic change from prior to surgery. She has sustained dorsiflexion plantarflexion EHL intact. Calves and thighs were soft nontender without evidence of DVT. Assessment/Plan Postoperative day #1 status post minimally invasive decompression fusion L3-4 L4-5 for her spondylolisthesis with severe spinal stenosis lower extreme radiculopathy Patient is progressing as expected from the surgery. We will continue to increase the patient's mobilization with therapy. She should get up out of bed today. We will discontinue her Edwards today. We will continue pain control with oral or IV medications. She states she would like to go to [facility] posthospitalization and case management is seeing her in this regard. We'll continue to follow patient closely.
[2024-01-19] MEDS: ONDANSETRON 4 MG/2 ML VIAL IVP PRN (11:49)
[2024-01-19] MEDS: FAMOTIDINE 20 MG TAB PO SCH (20:45)
[2024-01-19] MEDS: ACETAMINOPHEN TAB 500 MG TAB PO PRN (20:45)
--- NOTE | 2024-01-19 22:28 | P.CONS ---
History of Present Illness - Reason for Consult Consult date: 01/19/24 Medical management - Chief Complaint Laminectomy and decompression L3-4 L4-5 - History of Present Illness Patient is a 78-year-old female with a past medical history of right breast cancer in 2023 and left breast cancer in 2020 status post bilateral breast lumpectomy, glaucoma, osteoarthritis and peripheral vascular disease and prior history of smoking was admitted to the hospital for elective laminectomy and decompression L3-L4 and L4-L5. Patient tolerated the procedure very well. Currently able to sit in the chair. Patient states that she has been having nausea since being sitting in chair but denies any vomiting episodes. No complaints of abdominal pain. No headache or dizziness or lightheadedness. Pain is fairly controlled with medications. Blood pressure this morning was 102/55 and pulse 99 respiration 18 pulse ox 94% on 2 L oxygen via nasal cannula. Patient denies any fever or chills. No cough or sputum production. No chest pain or shortness of breath. Laboratory pressure WBC 8.1 hemoglobin 10.3 and platelets 177 Sodium 137 potassium 3.7 chloride 100 bicarb is 22.6 BUN 9.3 and creatinine 0.7 blood sugar 86 and calcium 8.1 Review of Systems Constitutional: Patient denies any fever or chills . No generalized weakness or weight loss. Abdomen: Patient does have nausea. No vomiting. No diarrhea or abdominal pain. Cardiovascular: Patient denies any chest pain or short of breath no palpitations. Respiratory: patient denied any cough is from production. No shortness of breath Neurologic: Patient denied any numbness or tingling headache. Musculoskeletal: Patient denies any complaints of joint swelling or deformity. Skin: Negative Psychiatric: Negative Endocrine: No heat or cold intolerance. No recent weight gain. Genitourinary: No dysuria or hematuria. All other 14 point ROS negative except the above Past Medical History Past Medical History: Cancer, Eye Disorder, Musculoskeletal Disorder, Osteoarthritis (OA), Vascular Disorder Additional Past Medical History / Comment(s): Hx right breast cancer in 2003, hx left breast cancer in 2020, Hx Diptheria, Glaucoma in right eye, Osteopenia, PAD History of Any Multi-Drug Resistant Organisms: None Reported Past Surgical History: Breast Surgery, Orthopedic Surgery, Tubal Ligation Additional Past Surgical History / Comment(s): Thumb surgery, bilateral breast lumpectomy, bilateral shoulder rotator cuff repair Past Anesthesia/Blood Transfusion Reactions: No Reported Reaction Past Psychological History: No Psychological Hx Reported Smoking Status: Former smoker Past Alcohol Use History: None Reported Additional Past Alcohol Use History / Comment(s): Quit smoking around 2009, smoked for 40 yrs Past Drug Use History: None Reported - Past Family History Father Family Medical History: Coronary Artery Disease (CAD), Diabetes Mellitus, Deep Vein Thrombosis (DVT), Hypertension Additional Family Medical History / Comment(s): triple bypass, PAD Mother Family Medical History: Cancer Medications and Allergies Home Medications Medication Instructions Recorded Confirmed Type Gabapentin [Neurontin] 300 mg PO QAM 11/18/15 01/18/24 History Alendronate Sodium 70 mg PO 09/13/19 01/18/24 History Gabapentin [Neurontin] 1,200 mg PO HS 09/13/19 01/18/24 History Magnesium 400 mg PO HS 09/13/19 01/18/24 History Latanoprost/Pf [Latanoprost 0.005% 1 drop RIGHT EYE QAM 09/20/19 01/18/24 History Eye Drop] Acetaminophen/Diphenhydramine 2 tab PO HS 07/05/23 01/18/24 History [Tylenol PM 500-25mg] Brimonidine Eye Drop (? Dose) 1 drop RIGHT EYE HS 07/05/23 01/18/24 History Calcium Carbonate [Calcium] 600 mg PO QAM 07/05/23 01/18/24 History Exemestane [Aromasin] 25 mg PO QAM 07/05/23 01/18/24 History Melatonin [Melatonin ER] 10 mg PO 07/05/23 01/18/24 History Potassium Gluconate [Potassium 1,190 mg PO 07/05/23 01/18/24 History (2.5 MEQ = 600 MG)] Multivitamins, Thera [Multivitamin 1 tab PO QAM 01/16/24 01/18/24 History (formulary)] Psyllium Husk [Metamucil] 0 gm PO 01/16/24 01/18/24 History Allergies Allergy/AdvReac Type Severity Reaction Status Date / Time codeine AdvReac Unknown Verified 01/18/24 10:00 Physical Exam Vitals: Vital Signs Temp Pulse Resp BP BP Pulse Ox 01/19/24 08:00 99.3 F 92 15 131/68 97 01/19/24 01:09 98.2 F 99 18 102/55 94 L 01/18/24 19:31 98.8 F 90 17 133/69 97 01/18/24 16:40 97.5 F L 82 18 138/67 97 01/18/24 16:25 73 20 134/55 98 01/18/24 16:10 87 18 155/75 100 01/18/24 15:55 80 20 148/71 100 01/18/24 15:40 77 20 138/63 100 01/18/24 15:25 70 18 144/58 94 L 01/18/24 15:10 70 18 149/75 100 01/18/24 14:55 97.7 F 79 20 159/80 100 01/18/24 10:12 97.0 F L 75 18 128/72 98 Intake and Output 01/18/24 01/19/24 01/19/24 22:59 06:59 14:59 Intake Total 1075 Output Total 425 700 Balance 650 -700 Intake: IV 800 Intake, IV Titration 275 Amount Sodium Chloride 0.9% 1, 225 000 ml @ 75 mls/hr IV . [id number] [facility] Rx#:[id number] ceFAZolin 2 gm In Sodium 50 Chloride 0.9% 50 ml @ 100 mls/hr IVPB Q8H [facility] Rx#: [id number] Output: Urine 425 700 Other: Voiding Method Indwelling Catheter Weight 54.5 kg PHYSICAL EXAMINATION: Patient is lying in the bed comfortably, no acute distress, awake alert and oriented.. HEENT: Normocephalic. Neck is supple. Pupils reactive. Nostrils clear. Oral cavity is moist. Neck reveals no JVD, carotid bruits, or thyromegaly. CHEST EXAMINATION: Trachea is central. Symmetrical expansion. Bibasilar diminished sounds. CARDIAC: Normal S1, S2 with no gallops. No murmurs ABDOMEN: Soft. Bowel sounds normal. No organomegaly. No abdominal bruits. Extremities: reveal no edema. No clubbing or cyanosis Neurologically awake, alert, oriented x3 with well-coordinated movements. No focal deficits noted Skin: No rash or skin lesions. Psychiatric: Coperative. Nonsuicidal Musculoskeletal: No joint swelling or deformity. Normal range of motion. Results CBC & Chem 7: 01/19/24 05:08 01/19/24 05:08 Labs: Abnormal Lab Results - Last 24 Hours (Table) 01/19/24 01/19/24 Range/Units 05:08 05:08 RBC 3.19 L (4.10-5.20) X 10*6/uL Hgb 10.3 L (12.0-15.0) g/dL Hct 31.0 L (37.2-46.3) % MCV 97.2 H (80.0-97.0) FL MCH 32.3 H (27.0-32.0) pg Lymphocytes # 0.64 L (0.90-5.00) X 10*3/uL Calcium 8.1 L (8.7-10.3) mg/dL Assessment and Plan Assessment: S/p laminectomy and decompression L3-L4, L4-L5 with bilateral 4 laminectomies, partial medial facetectomy on the right. Postoperative day 1 Nausea likely due to narcotic pain medications Osteoarthritis Peripheral vascular disease Prior history of smoking History of right breast cancer in 2003 and left breast cancer in 2020 s/p bilateral lumpectomy GI and DVT prophylaxis Plan: Patient will be continued on pain medications, bowel regimen and encourage incentive spirometry. Limit narcotic pain medication use. Continue with home medication Follow-up repeat CBC tomorrow. Monitor H&H. Will continue to follow closely and further recommendations based on the clinical course. Patient is being continued on normal saline at 75 cc/h currently.
--- NOTE | 2024-01-20 08:49 | P.PN ---
Progress Note - Text Progress Note Date: 01/20/24 Orthopedic Spine History of present illness: Patient is a pleasant 78-year-old female who is seen and examined at the bedside following posterior lateral decompression and fusion performed Tuesday. Patient states they are doing okay post operatively. She does feel her pain is better controlled today as compared to yesterday. She was able to work with physical therapy yesterday but did have difficulty with ambulation. She is unable to get out of bed and ambulate independently. She does continue to require assistance. Currently does not complain of nausea, vomiting, fever, or chills. Patient states pain has been adequately controlled. Patient is eating without difficulty. Her Edwards catheter remains intact. We are planning for discontinuation of her Edwards catheter today. She is being seen by medicine for postoperative medical management. Patient is plan for discharge to rehabilitation facility tomorrow, 01/21/2024. Patient was discussed with her insurance and insurance authorization has been approved. Physical Exam Lumbar Fusion: Status post surgical day number 2 Patient is awake, alert, and oriented 3 Vital signs stable Good chest excursion with deep inspiration and expiration Abdomen soft nontender Dorsiflexion, plantarflexion, and extensor hallucis longus positive sustained bilaterally No signs or symptoms of DVT; no calf pain; pneumatic cuffs intact bilateral lower extremities Optifoam dressings are clean, dry, and intact over the lumbar spine and right iliac crest; no erythema, purulence, or signs of infection Neurovascularly intact bilaterally lower extremities Edwards catheter intact Assessment: Status post L3-4 and L4-5 minimally invasive posterior lateral decompression and fusion with transforaminal lumbar interbody fusion Low back pain L3-4 spondylolisthesis L3-4 and L4-5 spinal stenosis Lower extremity radiculopathy Lower extremity weakness Lumbar facet arthrosis Lumbar degenerative disc disease Peripheral vascular disease History of prior smoking History of previous breast cancer with history of bilateral lumpectomy Plan: 1. Ambulate as tolerated; work with Physical Therapy to increase mobilization 2. Continue pain control with IV and oral medications; will plan to begin weaning the patient off of IV narcotic medication in anticipation for discharge to rehabilitation facility tomorrow, 01/21/2024. [facility] has been reviewed. An "Opiod Start Talking" Form has been signed and placed in the patient's chart. A prescription has been written for hydrocodone 5 mg / 325 mg, 1 tab, every 6 hours as needed for acute pain, dispense #28. Prescriptions were also written for baclofen 10 mg, 1 tab, 3 times daily, as needed for muscle spasm, and Senokot-S, 1 tab, twice daily, as needed for constipation, dispense #60. Hydrocodone prescription is written, signed, and placed in the patient's chart for discharge. Patient should avoid anti-inflammatory medications over the next 6 weeks postoperatively. 3. Dressings to remain intact with Optifoam; patient may shower with dressings intact; dressing may be removed in 3 days and patient may shower without dressing intact at that time 4. Medical management can continue to manage patient for patient's other medical diagnoses; patient must be cleared by medicine prior to discharge tomorrow 5. We will continue to follow the patient closely; depending on the patient's p rogress, we are currently planning for discharge to rehabilitation facility tomorrow, 01/21/2024. Patient has been approved by her insurance following peer to peer evaluation. 6. Discontinue Edwards catheter. 7. Patient may follow-up with Eliu Maynard PA-C or Dr. Rigo Cagle at [facility] in 2-3 weeks following discharge.
[2024-01-20 11:30] LABS: Basophils # (A) 0.05 X 10*3/uL (0.00-0.10); Basophils % (A) 0.4 %; Eosinophils # (A) 0.25 X 10*3/uL (0.04-0.35); Eosinophils % (A) 1.9 %; HCT 31.8 % (37.2-46.3); HGB 10.7 g/dL (12.0-15.0); Lymphocytes # (A) 0.57 X 10*3/uL (0.90-5.00); Lymphocytes % (A) 4.3 %; MCHC 33.6 g/dL (32.0-37.0); MCV 95.2 FL (80.0-97.0); Mean Platelet Volume 11.1 FL (9.5-12.2); Monocytes # (A) 1.27 X 10*3/uL (0.20-1.00); Monocytes % (A) 9.6 %; NRBC Per 100 WBC 0 X 10*3/uL (0.00-0.01); Neutrophils # (A) 10.99 X 10*3/uL (1.80-7.70); Neutrophils % (A) 83.3 %; Platelet Count 167 X 10*3/uL (140-440); RBC 3.34 X 10*6/uL (4.10-5.20); RDW 12.1 % (11.5-14.5); WBC 13.19 X 10*3/uL (4.50-10.00)
[2024-01-20] MEDS: diphenhydrAMINE 25 MG CAP PO PRN (21:07)
--- NOTE | 2024-01-20 22:23 | P.PN ---
Subjective Progress Note Date: 01/20/24 Patient is a 78-year-old female with a past medical history of right breast cancer in 2023 and left breast cancer in 2020 status post bilateral breast lumpectomy, glaucoma, osteoarthritis and peripheral vascular disease and prior history of smoking was admitted to the hospital for elective laminectomy and decompression L3-L4 and L4-L5. Patient tolerated the procedure very well. Currently able to sit in the chair. Patient states that she has been having nausea since being sitting in chair but denies any vomiting episodes. No complaints of abdominal pain. No headache or dizziness or lightheadedness. Pain is fairly controlled with medications. Blood pressure this morning was 102/55 and pulse 99 respiration 18 pulse ox 94% on 2 L oxygen via nasal cannula. Patient denies any fever or chills. No cough or sputum production. No chest pain or shortness of breath. Laboratory pressure WBC 8.1 hemoglobin 10.3 and platelets 177 Sodium 137 potassium 3.7 chloride 100 bicarb is 22.6 BUN 9.3 and creatinine 0.7 blood sugar 86 and calcium 8.1 01/20/2024 Patient is currently resting in the bed. Awake alert and oriented x 3. Pain is fairly controlled. No complaints of nausea or vomiting. Symptomatically better today. No headache or dizziness. No chest pain or shortness of breath. Afebrile. Blood pressure is stable. Laboratory data showed WBC 13.1 hemoglobin 10.7 and platelets 167 Patient is participating physical therapy. But patient is unable to get up independently. Patient may need rehab transfer. Current medications reviewed. Objective - Vital Signs Vital signs: Vital Signs Temp 98.1 F 01/20/24 07:10 Pulse 89 01/20/24 07:10 Resp 18 01/20/24 07:10 BP 124/63 01/20/24 07:10 Pulse Ox 95 01/20/24 07:10 FiO2 Intake & Output 01/19/24 01/20/24 01/20/24 18:59 06:59 18:59 Output Total 800 975 800 Balance -800 -975 -800 Output: Urine 800 975 800 Uretheral (Edwards) 800 Other: Voiding Method Indwelling Catheter # Voids 1 - Exam PHYSICAL EXAMINATION: Patient is lying in the bed comfortably, no acute distress, awake alert and oriented.. HEENT: Normocephalic. Neck is supple. Pupils reactive. Nostrils clear. Oral cavity is moist. Neck reveals no JVD, carotid bruits, or thyromegaly. CHEST EXAMINATION: Trachea is central. Symmetrical expansion. Bibasilar diminished sounds. CARDIAC: Normal S1, S2 with no gallops. No murmurs ABDOMEN: Soft. Bowel sounds normal. No organomegaly. No abdominal bruits. Extremities: reveal no edema. No clubbing or cyanosis Neurologically awake, alert, oriented x3 with well-coordinated movements. No focal deficits noted Skin: No rash or skin lesions. Psychiatric: Coperative. Nonsuicidal Musculoskeletal: No joint swelling or deformity. Normal range of motion. - Labs CBC & Chem 7: 01/20/24 06:15 01/19/24 05:08 Labs: Abnormal Lab Results - Last 24 Hours (Table) 01/20/24 Range/Units 06:15 WBC 13.19 H (4.50-10.00) X 10*3/uL RBC 3.34 L (4.10-5.20) X 10*6/uL Hgb 10.7 L (12.0-15.0) g/dL Hct 31.8 L (37.2-46.3) % Immature Gran # 0.06 H (0.00-0.04) X 10*3/uL Neutrophils # 10.99 H (1.80-7.70) X 10*3/uL Lymphocytes # 0.57 L (0.90-5.00) X 10*3/uL Monocytes # 1.27 H (0.20-1.00) X 10*3/uL Assessment and Plan Assessment: S/p laminectomy and decompression L3-L4, L4-L5 with bilateral 4 laminectomies, partial medial facetectomy on the right. Postoperative day 2 Leukocytosis likely postsurgical inflammation. Nausea likely due to narcotic pain medications. Improved now. Osteoarthritis Peripheral vascular disease Prior history of smoking History of right breast cancer in 2003 and left breast cancer in 2020 s/p bilateral lumpectomy GI and DVT prophylaxis Plan: Patient will be continued on pain medications, bowel regimen and encourage incentive spirometry. Limit narcotic pain medication use. Continue with home medications Follow-up repeat CBC tomorrow. Will continue to follow closely and further recommendations based on the clinical course. Patient is being continued on normal saline at 75 cc/h currently.
[2024-01-21 09:49] LABS: Basophils # (A) 0.06 X 10*3/uL (0.00-0.10); Basophils % (A) 0.8 %; Eosinophils # (A) 0.27 X 10*3/uL (0.04-0.35); Eosinophils % (A) 3.5 %; HCT 31.1 % (37.2-46.3); HGB 10.5 g/dL (12.0-15.0); Lymphocytes % (A) 7.8 %; MCH 32.8 pg (27.0-32.0); MCHC 33.8 g/dL (32.0-37.0); MCV 97.2 FL (80.0-97.0); Mean Platelet Volume 11.2 FL (9.5-12.2); Monocytes # (A) 0.69 X 10*3/uL (0.20-1.00); NRBC Per 100 WBC 0 X 10*3/uL (0.00-0.01); Neutrophils # (A) 6.06 X 10*3/uL (1.80-7.70); Neutrophils % (A) 78.6 %; Platelet Count 161 X 10*3/uL (140-440)
--- NOTE | 2024-01-21 09:53 | P.PN ---
Progress Note - Text Progress Note Date: 01/21/24 Postoperative day #3 Patient is seen and examined today at bedside. The patient has some pain around the surgical site as expected. She also has pain around her anterior thighs that occurs for about 5 or 10 minutes 1 or 2 times an hour. She still has good motion of her lower extremities denies any new neurologic change. She has been ambulatory in the room and up to the floor but is requiring IV pain medications regularly pain is being controlled with medication. Physical Exam Afebrile with stable vital signs Abdomen is soft nontender. Chest has good excursion deep and space expiration The incision site is clean dry and intact. No erythema there is no purulence. Extremities have not had neurologic change from prior to surgery. She has sustained dorsiflexion plantarflexion EHL intact. Thighs and calves are soft nontender. Calves and thighs were soft nontender without evidence of DVT. Assessment/Plan Postoperative day #3 status post minimally invasive decompression fusion L3-4 L4-5 for her spondylolisthesis with spinal stenosis L3-4 L4-5 Patient is progressing as expected from the surgery. She has been able to increase her mobilization but is still having significant pain requiring IV medication. She does not feel that she is safe to go to rehab today and will need another 1 or 2 days. Hopefully will be able to wean down her IV pain medication and Control her pain with oral meds. We will continue to increase the patient's mobilization with therapy. We will continue pain control with oral or IV medications. We'll continue to follow patient closely. Likely discharge to rehab on Tuesday.
[2024-01-21 09:54] LABS: BUN/Creat Ratio 11.83 Ratio (12.00-20.00); Blood Urea Nitrogen 7.1 mg/dL (9.0-27.0); Calcium 8.5 mg/dL (8.7-10.3); Carbon Dioxide 30.1 mmol/L (21.6-31.8); Chloride 99 mmol/L (96-109); Glucose 118 mg/dL (70-110); Potassium 3.9 mmol/L (3.5-5.5); Sodium 137 mmol/L (135-145)
--- NOTE | 2024-01-22 08:58 | P.PN ---
Progress Note - Text Progress Note Date: 01/22/24 Postoperative day #4 Patient is seen and examined today at bedside. The patient has some pain around the surgical site as expected. Pain is being controlled with medication. Physical Exam Afebrile with stable vital signs Abdomen is soft nontender. Chest has good excursion deep and space expiration The incision site is clean dry and intact. No erythema there is no purulence. The dressing is removed and there is no drainage at all. There is no erythema. Extremities have not had neurologic change from prior to surgery. Calves and thighs were soft nontender without evidence of DVT. Assessment/Plan Postoperative day #4 status post minimally invasive decompression fusion L3-4 L4-5 for her spondylolisthesis with spinal stenosis and lower extremity radiculopathy Patient is progressing as expected from the surgery. Her mobility is significantly improving and her pain is being controlled better. We will continue to increase the patient's mobilization with therapy. She is passing gas but she has not yet had a bowel movement. We will continue pain control with oral or IV medications. She is using less IV medication and I think we will be able to convert her over to oral so that she can go to [facility] tomorrow. We'll continue to follow patient closely.
[2024-01-22] MEDS ORDERED: NON FORMULARY DRUG (Alendronate Sodium [Alendronate Sodium] 70 MG Tablet) PO SCH (14:49)
--- NOTE | 2024-01-23 02:18 | P.PN ---
Subjective Progress Note Date: 01/21/24 Patient is a 78-year-old female with a past medical history of right breast cancer in 2023 and left breast cancer in 2020 status post bilateral breast lumpectomy, glaucoma, osteoarthritis and peripheral vascular disease and prior history of smoking was admitted to the hospital for elective laminectomy and decompression L3-L4 and L4-L5. Patient tolerated the procedure very well. Currently able to sit in the chair. Patient states that she has been having nausea since being sitting in chair but denies any vomiting episodes. No complaints of abdominal pain. No headache or dizziness or lightheadedness. Pain is fairly controlled with medications. Blood pressure this morning was 102/55 and pulse 99 respiration 18 pulse ox 94% on 2 L oxygen via nasal cannula. Patient denies any fever or chills. No cough or sputum production. No chest pain or shortness of breath. Laboratory pressure WBC 8.1 hemoglobin 10.3 and platelets 177 Sodium 137 potassium 3.7 chloride 100 bicarb is 22.6 BUN 9.3 and creatinine 0.7 blood sugar 86 and calcium 8.1 01/20/2024 Patient is currently resting in the bed. Awake alert and oriented x 3. Pain is fairly controlled. No complaints of nausea or vomiting. Symptomatically better today. No headache or dizziness. No chest pain or shortness of breath. Afebrile. Blood pressure is stable. Laboratory data showed WBC 13.1 hemoglobin 10.7 and platelets 167 Patient is participating physical therapy. But patient is unable to get up independently. Patient may need rehab transfer. 01/21/2024 Patient is resting in the bed. Awake alert and oriented x 3. On room air. Pain at the surgical site is improving. Denies any numbness or tingling in the legs. Does complain of pain over the anterior thighs bilaterally. Patient was able to participate in physical therapy. Able to ambulate in the room. Continue inpatient management. Laboratory pressure WBC trending down to 7.7 hemoglobin 10.5 and platelets 161 Sodium 137 potassium 3.9 chloride 99 bicarb is 30.1 BUN 7.1 and creatinine 0.6 and calcium 8.5. Anticipate discharge to rehab on Tuesday. Current medications reviewed. Objective - Vital Signs Vital signs: Vital Signs Temp 98.2 F 01/21/24 00:45 Pulse 87 01/21/24 07:35 Resp 18 01/21/24 07:35 BP 139/69 01/21/24 07:35 Pulse Ox 92 L 01/21/24 07:35 FiO2 Intake & Output 01/20/24 01/21/24 01/21/24 18:59 06:59 18:59 Intake Total 800 Output Total 804 Balance -804 800 Intake: Oral 800 Output: Urine 804 Uretheral (Edwards) 800 Other: # Voids 1 4 # Bowel Movements 0 - Exam PHYSICAL EXAMINATION: Patient is lying in the bed comfortably, no acute distress, awake alert and oriented.. HEENT: Normocephalic. Neck is supple. Pupils reactive. Nostrils clear. Oral cavity is moist. Neck reveals no JVD, carotid bruits, or thyromegaly. CHEST EXAMINATION: Trachea is central. Symmetrical expansion. Bibasilar diminished sounds. CARDIAC: Normal S1, S2 with no gallops. No murmurs ABDOMEN: Soft. Bowel sounds normal. No organomegaly. No abdominal bruits. Extremities: reveal no edema. No clubbing or cyanosis Neurologically awake, alert, oriented x3 with well-coordinated movements. No focal deficits noted Skin: No rash or skin lesions. Psychiatric: Coperative. Nonsuicidal Musculoskeletal: No joint swelling or deformity. Normal range of motion. - Labs CBC & Chem 7: 01/21/24 06:43 01/21/24 06:43 Labs: Abnormal Lab Results - Last 24 Hours (Table) 01/21/24 01/21/24 Range/Units 06:43 06:43 RBC 3.20 L (4.10-5.20) X 10*6/uL Hgb 10.5 L (12.0-15.0) g/dL Hct 31.1 L (37.2-46.3) % MCV 97.2 H (80.0-97.0) FL MCH 32.8 H (27.0-32.0) pg Lymphocytes # 0.60 L (0.90-5.00) X 10*3/uL BUN 7.1 L (9.0-27.0) mg/dL BUN/Creatinine Ratio 11.83 L (12.00-20.00) Ratio Glucose 118 H (70-110) mg/dL Calcium 8.5 L (8.7-10.3) mg/dL Assessment and Plan Assessment: S/p laminectomy and decompression L3-L4, L4-L5 with bilateral 4 laminectomies, partial medial facetectomy on the right. Postoperative day 3 Leukocytosis likely postsurgical inflammation. Nausea likely due to narcotic pain medications. Improved now. Osteoarthritis Peripheral vascular disease Prior history of smoking History of right breast cancer in 2003 and left breast cancer in 2020 s/p bilateral lumpectomy GI and DVT prophylaxis Plan: Patient will be continued on pain medications, bowel regimen and encourage incentive spirometry. Limit narcotic pain medication use. Continue with home medications Leukocytosis resolved. Patient is tolerating oral diet. Will continue to follow closely and further recommendations based on the clinical course. Patient is being continued on normal saline at 75 cc/h currently.
--- NOTE | 2024-01-23 02:20 | P.PN ---
Subjective Progress Note Date: 01/22/24 Patient is a 78-year-old female with a past medical history of right breast cancer in 2023 and left breast cancer in 2020 status post bilateral breast lumpectomy, glaucoma, osteoarthritis and peripheral vascular disease and prior history of smoking was admitted to the hospital for elective laminectomy and decompression L3-L4 and L4-L5. Patient tolerated the procedure very well. Currently able to sit in the chair. Patient states that she has been having nausea since being sitting in chair but denies any vomiting episodes. No complaints of abdominal pain. No headache or dizziness or lightheadedness. Pain is fairly controlled with medications. Blood pressure this morning was 102/55 and pulse 99 respiration 18 pulse ox 94% on 2 L oxygen via nasal cannula. Patient denies any fever or chills. No cough or sputum production. No chest pain or shortness of breath. Laboratory pressure WBC 8.1 hemoglobin 10.3 and platelets 177 Sodium 137 potassium 3.7 chloride 100 bicarb is 22.6 BUN 9.3 and creatinine 0.7 blood sugar 86 and calcium 8.1 01/20/2024 Patient is currently resting in the bed. Awake alert and oriented x 3. Pain is fairly controlled. No complaints of nausea or vomiting. Symptomatically better today. No headache or dizziness. No chest pain or shortness of breath. Afebrile. Blood pressure is stable. Laboratory data showed WBC 13.1 hemoglobin 10.7 and platelets 167 Patient is participating physical therapy. But patient is unable to get up independently. Patient may need rehab transfer. 01/21/2024 Patient is resting in the bed. Awake alert and oriented x 3. On room air. Pain at the surgical site is improving. Denies any numbness or tingling in the legs. Does complain of pain over the anterior thighs bilaterally. Patient was able to participate in physical therapy. Able to ambulate in the room. Continue inpatient management. Laboratory pressure WBC trending down to 7.7 hemoglobin 10.5 and platelets 161 Sodium 137 potassium 3.9 chloride 99 bicarb is 30.1 BUN 7.1 and creatinine 0.6 and calcium 8.5. Anticipate discharge to rehab on Tuesday. 01/22/2024 Patient is resting in bed. Awake alert and oriented x 3. Pain is well- controlled today. Patient is able to ambulate to the bathroom. No complaints of chest pain or shortness of breath. No nausea vomiting abdominal pain. No numbness or tingling in the legs. Leukocytosis resolved. Hemoglobin stable. Anticipate Discharge to shelter home in the next 24 hours. Current medications reviewed. Objective - Vital Signs Vital signs: Vital Signs Temp 97.1 F L 01/22/24 07:23 Pulse 86 01/22/24 07:23 Resp 20 01/22/24 07:23 BP 123/63 01/22/24 07:23 Pulse Ox 94 L 01/22/24 07:23 FiO2 Intake & Output 01/21/24 01/22/24 01/22/24 18:59 06:59 18:59 Other: Voiding Method Indwelling Catheter Toilet # Voids 4 1 # Bowel Movements 0 0 - Exam PHYSICAL EXAMINATION: Patient is lying in the bed comfortably, no acute distress, awake alert and oriented.. HEENT: Normocephalic. Neck is supple. Pupils reactive. Nostrils clear. Oral cavity is moist. Neck reveals no JVD, carotid bruits, or thyromegaly. CHEST EXAMINATION: Trachea is central. Symmetrical expansion. Bibasilar diminished sounds. CARDIAC: Normal S1, S2 with no gallops. No murmurs ABDOMEN: Soft. Bowel sounds normal. No organomegaly. No abdominal bruits. Extremities: reveal no edema. No clubbing or cyanosis Neurologically awake, alert, oriented x3 with well-coordinated movements. No focal deficits noted Skin: No rash or skin lesions. Psychiatric: Coperative. Nonsuicidal Musculoskeletal: No joint swelling or deformity. Normal range of motion. - Labs CBC & Chem 7: 01/21/24 06:43 01/21/24 06:43 Assessment and Plan Assessment: S/p laminectomy and decompression L3-L4, L4-L5 with bilateral 4 laminectomies, partial medial facetectomy on the right. Postoperative day 4 Leukocytosis likely postsurgical inflammation. Nausea likely due to narcotic pain medications. Improved now. Osteoarthritis Peripheral vascular disease Prior history of smoking History of right breast cancer in 2003 and left breast cancer in 2020 s/p bilateral lumpectomy GI and DVT prophylaxis Plan: Patient will be continued on pain medications, bowel regimen and encourage incentive spirometry. Limit narcotic pain medication use. Continue with home medications Leukocytosis resolved. Patient is tolerating oral diet. Will continue to follow closely and further recommendations based on the clinical course. Encourage oral intake and PT OT.
[2024-01-23 07:56] VITALS: BP 149/71; PULSE 83; RESP 16; TEMP 98.3
--- NOTE | 2024-01-23 08:41 | P.DS ---
Providers Date of admission: 01/19/24 12:15 Expected date of discharge: 01/23/24 Attending physician: Peri Cagle Consults: 01/18/24 15:26 Consult Physician Routine Consulting Provider: Robinson Mercado Consult Reason/Comments: medical managment Do you want consulting provider notified?: Yes Primary care physician: Alda Benjamin - Discharge Diagnosis(es) (1) Spondylolisthesis, lumbar region Current Visit: Yes Status: Acute (2) Lumbar spinal stenosis Current Visit: Yes Status: Acute (3) Lumbar back pain with radiculopathy affecting lower extremity Current Visit: Yes Status: Acute (4) Lower extremity weakness Current Visit: Yes Status: Acute (5) Lumbar facet arthropathy Current Visit: Yes Status: Acute (6) Lumbar degenerative disc disease Current Visit: Yes Status: Acute (7) Peripheral vascular disease Current Visit: Yes Status: Acute (8) History of smoking Current Visit: Yes Status: Acute Hospital Course: This is a pleasant 78-year-old female who presented with L3-4 spondylolisthesis, L3-4 and L4-5 spinal stenosis, lower extremity weakness and radiculopathy, lumbar degenerative disc disease, lumbar facet arthrosis, and low back pain who failed outpatient conservative therapy. She was admitted for an L3-4 and L4-5 minimally invasive posterior lateral decompression and fusion with transforaminal lumbar interbody fusion. The patient tolerated the procedure well and did well postoperatively. She has been progressing slowly postoperatively but has been improving. She does feel she would be ready for discharge today to rehabilitation facility. Authorization has been approved by her insurance good through [employer]. Condition on day of discharge stable. Patient will be discharged to rehab. Patient was cleared preoperatively for surgery by Dr. Benjamin. Patient currently denies any nausea, vomiting, fever, or chills. Patient is eating and voiding freely without difficulty. Optifoam dressings have been removed. Patient may shower without a dressing at that time. Patient should refrain from driving until at least after their first follow-up appointment in the office. Patient should avoid excessive bending, lifting, and twisting; no lifting greater than 10 pounds. Patient has not had a bowel movement over the past 6 days. Her abdomen is soft and she is passing gas. She has been receiving Senokot and milk of magnesia. We will plan to add Fleet enema. We did discuss she should have a bowel movement prior to discharge today. MAPS has been reviewed. An "Opiod Start Talking" Form has been signed and placed in the patient's chart. A prescription has been written for hydrocodone 5 mg / 325 mg, 1 tab, every 6 hours as needed for acute pain, dispense #28. Prescriptions were also written for baclofen 10 mg, 1 tab, 3 times daily, as needed for muscle spasm, and Senokot-S, 1 tab, twice daily, as needed for constipation, dispense #60. Hydrocodone prescription is written, signed, and placed in the patient's chart for discharge. Patient should avoid anti-inflammatory medications over the next 6 weeks postoperatively. Patient's other medical diagnoses include peripheral vascular disease, history of prior smoking, and history of previous breast cancer with history of bilateral lumpectomy. Physical Exam on day of discharge: Patient is awake, alert, and oriented 3 Vital signs stable Good chest excursion with deep inspiration and expiration Abdomen soft nontender No signs or symptoms of DVT; no calf pain Extensor hallucis longus, plantarflexion, and dorsiflexion positive sustained bilateral lower extremities Surgical incision sites are clean, dry, and intact; no erythema, purulence, or signs of infection Optifoam dressing has been removed Procedures: L3-4 and L4-5 minimally invasive posterior lateral decompression and fusion with transforaminal lumbar interbody fusion Patient Condition at Discharge: Stable Plan - Discharge Summary Discharge Rx Participant: No New Discharge Prescriptions: New HYDROcodone/APAP 5-325MG [[place] 5] 1 each PO Q6HR PRN #28 tab PRN Reason: Pain Baclofen 10 mg PO TID PRN #60 tab PRN Reason: Spasms Sennosides-Docusate Sodium [Senokot-S] 1 tab PO BID PRN #60 tablet PRN Reason: Constipation No Action Gabapentin [Neurontin] 300 mg PO QAM Gabapentin [Neurontin] 1,200 mg PO HS Alendronate Sodium 70 mg PO LEWIS Magnesium 400 mg PO HS Latanoprost/Pf [Latanoprost 0.005% Eye Drop] 1 drop RIGHT EYE QAM Calcium Carbonate [Calcium] 600 mg PO QAM Brimonidine Eye Drop (? Dose) 1 drop RIGHT EYE HS Potassium Gluconate [Potassium (2.5 MEQ = 600 MG)] 1,190 mg PO HS Melatonin [Melatonin ER] 10 mg PO HS Multivitamins, Thera [Multivitamin (formulary)] 1 tab PO QAM Exemestane [Aromasin] 25 mg PO QAM Acetaminophen/Diphenhydramine [Tylenol PM 500-25mg] 2 tab PO HS Psyllium Husk [Metamucil] 0 gm PO HS Discharge Medication List Gabapentin [Neurontin] 300 mg PO QAM 11/18/15 [History] Alendronate Sodium 70 mg PO LEWIS 09/13/19 [History] Gabapentin [Neurontin] 1,200 mg PO HS 09/13/19 [History] Magnesium 400 mg PO HS 09/13/19 [History] Latanoprost/Pf [Latanoprost 0.005% Eye Drop] 1 drop RIGHT EYE QAM 09/20/19 [History] Acetaminophen/Diphenhydramine [Tylenol PM 500-25mg] 2 tab PO HS 07/05/23 [History] Brimonidine Eye Drop (? Dose) 1 drop RIGHT EYE HS 07/05/23 [History] Calcium Carbonate [Calcium] 600 mg PO QAM 07/05/23 [History] Exemestane [Aromasin] 25 mg PO QAM 07/05/23 [History] Melatonin [Melatonin ER] 10 mg PO HS 07/05/23 [History] Potassium Gluconate [Potassium (2.5 MEQ = 600 MG)] 1,190 mg PO HS 07/05/23 [History] Multivitamins, Thera [Multivitamin (formulary)] 1 tab PO QAM 01/16/24 [History] Psyllium Husk [Metamucil] 0 gm PO HS 01/16/24 [History] Baclofen 10 mg PO TID PRN #60 tab 01/20/24 [Rx] HYDROcodone/APAP 5-325MG [[place] 5] 1 each PO Q6HR PRN #28 tab 01/20/24 [Rx] Sennosides-Docusate Sodium [Senokot-S] 1 tab PO BID PRN #60 tablet 01/20/24 [Rx] Follow up Appointment(s)/Referral(s): Eliu Maynard, JERED [PHYSICIAN REGISTERED MEDICAL TRANSCRIPTIONIST] - 2 Weeks (Patient may follow-up with Eliu Maynard PA-C or Dr. Rigo Pasia at [facility] in 2-3 weeks following discharge. ) Activity/Diet/Wound Care/Special Instructions: 1. Patient may shower without Optifoam dressing intact 2. Patient is encouraged to work with therapy to increase mobility and ambulation; may use walker to aid in ambulation as needed 3. Patient should refrain from driving until at least after their first follow- up appointment in the office. 4. Patient should avoid excessive bending, twisting, lifting; avoid overhead lifting; no lifting greater than 10 pounds 5. Take medications as prescribed 6. Patient should avoid anti-inflammatory medications over the next 6 weeks postoperatively 7. Do not soak in tub Discharge Disposition: TRANSFER TO SNF/ECF
[2024-01-23] MEDS: NA PHOS,M-B/NA PHOS,DI-BA 133 ML ENEMA RECTAL ONE (09:19)
[2024-01-23 11:34] LABS: BUN/Creat Ratio 11.33 Ratio (12.00-20.00); Blood Urea Nitrogen 6.8 mg/dL (9.0-27.0); Carbon Dioxide 29.1 mmol/L (21.6-31.8); Chloride 99 mmol/L (96-109); Glucose 106 mg/dL (70-110); Sodium 140 mmol/L (135-145)
[2024-01-23 11:35] LABS: Calcium 8.8 mg/dL (8.7-10.3)
--- NOTE | 2024-01-24 05:41 | PN ---
PROGRESS NOTE DATE OF SERVICE: 01/23/2024 SUBJECTIVE: This is an 78-year-old woman, who was admitted after laminectomy and decompression, is being closely monitored. ECF rehab is planned. No chest pain. No palpitation. OBJECTIVE: VITAL SIGNS: Pulse is 83, blood pressure 114/70, respirations 16. CHEST: Clear to auscultation. CARDIOVASCULAR: S1, S2 muffled. RESPIRATIONS: Breath sounds diminished at the bases. ABDOMEN: Soft. NERVOUS SYSTEM: Nonfocal. LABORATORY DATA: Reviewed. ASSESSMENT: 1. Status post laminectomy and decompression. 2. Leukocytosis. 3. Nausea. 4. Degenerative joint disease. 5. Peripheral vascular disease. RECOMMENDATIONS: Recommend to continue current management. Continue symptomatic treatment. Resume home medications. PT, OT evaluation. Otherwise, closely follow with primary physician after discharge. MMODL / IJN: [id number] /
== END 2024-01-23 15:34 ==
LOC: OR 09:41 → 4SSUR 14:55 → OR 01-19 12:15
PROVIDERS: ADMIT Orthopaedic Surgery Orthopaedic Surgery of the Spine; ATTEND Orthopaedic Surgery Orthopaedic Surgery of the Spine
DX: M43.16 Spondylolisthesis, lumbar region (principal); M48.061 Spinal stenosis, lumbar region without neurogenic claudication; M51.16 Intervertebral disc disorders with radiculopathy, lumbar region; M47.26 Other spondylosis with radiculopathy, lumbar region; M25.78 Osteophyte, vertebrae; D72.829 Elevated white blood cell count, unspecified; R11.0 Nausea; M19.90 Unspecified osteoarthritis, unspecified site; I73.9 Peripheral vascular disease, unspecified; Z85.3 Personal history of malignant neoplasm of breast; Z87.891 Personal history of nicotine dependence
CPT/HCPCS: 96376 ×4; 96365; 96366 ×2; 96375 ×2; 94760; 97162; 97166; 86891; 80048 ×3; 85025 ×3; 72100; 22612; 22614; 22853 ×2; 20931; 20936; G0378 ×5; C1713 ×2; J2250; J0330; J2175; J0690 ×3; J2405 ×2; J2001; J3010; J1170 ×6; J2704; J2371; J0665

== ENCOUNTER → 2024-11-02 | Outpatient (CLI) | payer MEDICARE ==
[2024-11-02 11:57] LABS: Partial Thromboplastin Time 25.7 sec (22.0-30.0); Prothrombin Time 11.2 sec (10.0-12.5)
[2024-11-02 15:14] LABS: ALT 13 U/L (8-44); AST 21 U/L (13-35); Albumin 4.7 g/dL (3.8-4.9); Albumin/Globulin Ratio 2.04 Ratio (1.60-3.17); Alkaline Phosphatase 51 U/L (41-126); Blood Urea Nitrogen 12.8 mg/dL (9.0-27.0); Calcium 9.9 mg/dL (8.7-10.3); Carbon Dioxide 28.5 mmol/L (21.6-31.8); Chloride 100 mmol/L (96-109); Globulin 2.3 g/dL (1.6-3.3); Glucose 80 mg/dL (70-110); Potassium 4.2 mmol/L (3.5-5.5); Sodium 140 mmol/L (135-145); Total Bilirubin 0.4 mg/dL (0.3-1.2)
[2024-11-02 17:02] LABS: HCT 39.3 % (37.2-46.3); HGB 12.6 g/dL (12.0-15.0); MCH 32.1 pg (27.0-32.0); MCHC 32.1 g/dL (32.0-37.0); MCV 100.3 FL (80.0-97.0); Mean Platelet Volume 12.1 FL (9.5-12.2); NRBC Per 100 WBC 0 X 10*3/uL (0.00-0.01); Platelet Count 213 X 10*3/uL (140-440); RBC 3.92 X 10*6/uL (4.10-5.20); RDW 12.2 % (11.5-14.5); WBC 4.56 X 10*3/uL (4.50-10.00)
== END | disposition home or self-care (01) ==
LOC: LABWHC1 10:21
PROVIDERS: ATTEND Orthopaedic Surgery Sports Medicine
DX: Z01.818 Encounter for other preprocedural examination (principal); M19.011 Primary osteoarthritis, right shoulder; Z22.322 Carrier or suspected carrier of Methicillin resistant Staphylococcus aureus
CPT/HCPCS: 36415; 80053; 85027; 85610; 85730; 87070; 93005

== ENCOUNTER → 2024-11-02 | Outpatient (CLI) | payer MEDICARE ==
--- NOTE | 2024-11-02 11:39 | CT ---
EXAMINATION TYPE: CT shoulder LT wo con DATE OF EXAM: 11/02/2024 COMPARISON: None CLINICAL INDICATION: Female, 79 years old with history of M19.012 PRIMARY OSTEOARTHRITIS, LEFT SHOULD ER; PHH, Osteoarthritis left glenohumeral joint. Pre-surgical. CT DLP: 232.7 mGycm Automated exposure control for dose reduction was used. Findings: There is moderate superior subluxation of the left glenohumeral joint. There is mild hypertrophic spu rring of the bony glenoid and of the humeral head. There is mild narrowing of the joint space. The AC joint is normal. There is no fracture or focal intraosseous abnormality. IMPRESSION: 1. Mild to moderate osteoarthritis of the glenohumeral joint. 2. Subluxation of the glenohumeral joint raising the question of possible rotator cuff tear. 3. Unremarkable AC joint [facility], Workstation: [id number] 11/02/2024 11:37 AM
== END | disposition home or self-care (01) ==
LOC: RADCTMAIN 10:55
PROVIDERS: ATTEND Orthopaedic Surgery Sports Medicine
DX: M19.012 Primary osteoarthritis, left shoulder (principal); S43.082A Other subluxation of left shoulder joint, initial encounter

== ENCOUNTER 2024-11-29 08:16 | Day surgery (SDC) | payer MEDICARE ==
[~2024-11-29 08:16] MED LIST changes: -BUPIVACAINE (PF) 0.5% 30 ML VIAL ONE; +GABAPENTIN 300 MG CAP PO PRN; +HYDROmorphone 0.5 MG/0.5 ML SYRINGE IVP PRN; -LACTATED RINGERS 1,000 ML IV SCH; +LIDOCAINE 1% (10MG/ML) FOR IV START INTRADERMA PRN; -MIDAZOLAM 2 MG/2 ML VIAL ONE; +ONDANSETRON 4 MG/2 ML VIAL IVP PRN; +TRANEXAMIC 1,000 MG/100ML-NACL 1,000 MG in SALINE 1 100ML.BAG IVPB PRN; -fentaNYL (PF) 50 MCG/ML 2 ML AMP ONE; -methylPREDNISolone ACETATE 40 MG/ML 1 ML VIAL ONE
[2024-11-29] MEDS: DEXAMETHASONE SOD PHOSPHATE 4 MG/ML 1 ML VIAL IV ONE (09:11)
[2024-11-29] MEDS: ONDANSETRON 4 MG/2 ML VIAL IVP ONE (09:11)
[2024-11-29] MEDS: MELOXICAM 7.5 MG TAB PO PRN (09:11)
[2024-11-29] MEDS: LACTATED RINGERS 1,000 ML IV SCH ×2 (09:11→14:34)
[2024-11-29] MEDS: ACETAMINOPHEN TAB 500 MG TAB PO PRN (09:11)
[2024-11-29] MEDS: IV FLUID CONTINUATION 1,000 ML IV ONE (09:17)
[2024-11-29] MEDS: MIDAZOLAM 2 MG/2 ML VIAL IV ONE (09:22)
[2024-11-29] MEDS ORDERED: SENNOSIDES-DOCUSATE SODIUM 1 EACH TAB PO PRN (09:47)
[2024-11-29] MEDS ORDERED: HYDROmorphone 0.5 MG/0.5 ML SYRINGE IVP PRN ×3 (09:47)
[2024-11-29] MEDS ORDERED: diphenhydrAMINE 25 MG CAP PO PRN (09:47)
[2024-11-29] MEDS ORDERED: ONDANSETRON 4 MG/2 ML VIAL IVP PRN (09:47)
[2024-11-29] MEDS ORDERED: METOCLOPRAMIDE 5 MG/ML 2 ML VIAL IVP PRN (09:47)
[2024-11-29] MEDS ORDERED: TRANEXAMIC 1,000 MG/100ML-NACL PREMIX BAG ONE (10:28)
[2024-11-29] MEDS ORDERED: PROPOFOL 10 MG/ML 20 ML VIAL IV ONE (10:28)
[2024-11-29] MEDS ORDERED: DEXAMETHASONE SOD PHOSPHATE 4 MG/ML 1 ML VIAL ONE (10:28)
[2024-11-29] MEDS ORDERED: ePHEDrine 50 MG/ML 1 ML VIAL ONE (10:28)
[2024-11-29] MEDS ORDERED: LIDOCAINE 1% INJ 10MG/ML (20 ML MDV) ONE (10:28)
[2024-11-29] MEDS ORDERED: GLYCOPYRROLATE 0.2 MG/ML 2 ML VIAL ONE (10:28)
[2024-11-29] MEDS ORDERED: fentaNYL (PF) 50 MCG/ML 2 ML AMP ONE (10:28)
[2024-11-29] MEDS ORDERED: SUCCINYLCHOLINE CHLORIDE 200 MG/10 ML VIAL IV ONE (10:28)
[2024-11-29] MEDS ORDERED: ROCURONIUM 10 MG/ML (5 ML VIAL) IV ONE (10:28)
[2024-11-29] MEDS ORDERED: PHENYLEPHRINE 10 MG/ML VIAL ONE (10:28)
[2024-11-29] MEDS ORDERED: NEOSTIGMINE 1 MG/ML 10 ML VIAL ONE (10:28)
[2024-11-29] MEDS ORDERED: ROPIVACAINE 5 MG/ML 30 ML VIAL ONE (10:28)
[2024-11-29] MEDS: VANCOMYCIN 1,000 MG VIAL MISCELLANE ONE (11:47)
--- NOTE | 2024-11-29 12:41 | XR ---
EXAMINATION TYPE: XR shoulder limited LT DATE OF EXAM: 11/29/2024 12:26 PM COMPARISON: CT left shoulder November 02, 2024 CLINICAL INDICATION: Female, 79 years old with history of post op, pain TECHNIQUE: Single portable view of the left shoulder is obtained. FINDINGS: There is metallic hardware from a reverse total left shoulder arthroplasty now present and satisfactory in position on frontal projection. Some surrounding subcutaneous gas is noted. Surgical clips redemonstrated in the overlying left breast. IMPRESSION: As above. [facility], , 11/29/2024 12:39 PM
[2024-11-29] MEDS: HYDROcodone/APAP 7.5-325MG 1 EACH TAB PO PRN (14:35)
--- NOTE | 2024-11-29 15:06 | P.CONS ---
History of Present Illness - Reason for Consult Consult date: 11/29/24 Medical management left shoulder arthroplasty - History of Present Illness This is a 79-year-old female who was admitted under orthopedic services and is status post reverse total left shoulder arthroplasty postop day 0. Patient follows with Dr. Coyne in the outpatient setting with a past medical history of breast cancer, musculoskeletal disorder, osteoarthritis, vascular disorder, right eye glaucoma, PAD, former smoker, rarely drinks and denies any illicit drug use. Patient did undergo presurgical clearance testing with primary care provider prior to the surgery. Patient reports has been following with Dr. Ethan bell outpatient and has been having ongoing issues regarding the left shoulder. Labs reviewed from presurgical within normal limits. hemoglobin at that time was 12.6, platelets 213. Patient is currently maintained on 2 L nasal cannula and oxygenation saturations are above 97% patient is postanesthesia still on protocol postop. Patient does not wear oxygen outpatient and strongly encouraged incentive spirometer use and sitting up and sitting up in the chair more often. Patient denies any chest pain or shortness of breath. Patient is afebrile and blood pressure within normal limits. Will review home medications and resume as appropriate. REVIEW OF SYSTEMS: CONSTITUTIONAL: No fever, no malaise, no fatigue. HEENT: No recent visual problems or hearing problems. Denied any sore throat. CARDIOVASCULAR: No chest pain, orthopnea, PND, no palpitations, no syncope. PULMONARY: No shortness of breath, no cough, no hemoptysis. GASTROINTESTINAL: No diarrhea, no nausea, no vomiting, no abdominal pain. NEUROLOGICAL: No headaches, no weakness, no numbness. HEMATOLOGICAL: Denies any bleeding or petechiae. GENITOURINARY: Denies any burning micturition, frequency, or urgency. MUSCULOSKELETAL/RHEUMATOLOGICAL: Denies any joint pain, swelling, or any muscle pain. Denies any shoulder pain currently ENDOCRINE: Denies any polyuria or polydipsia. The rest of the 14-point review of systems is negative. PHYSICAL EXAMINATION: GENERAL: The patient is alert and oriented x3, not in any acute distress. Well developed, thin built, elderly appearing HEENT: Pupils are round and equally reacting to light. EOMI. No scleral icterus. No conjunctival pallor. Normocephalic, atraumatic. No pharyngeal erythema. No thyromegaly. CARDIOVASCULAR: S1 and S2 present. No murmurs, rubs, or gallops. PULMONARY: Diminished breath sounds bilaterally otherwise chest is clear to auscultation, no wheezing or crackles. ABDOMEN: Soft, thin, nontender, nondistended, normoactive bowel sounds. No palpable organomegaly. MUSCULOSKELETAL: No joint swelling or deformity. EXTREMITIES: No cyanosis, clubbing, or pedal edema. 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 SKIN: No rashes. Assessment: Status post reverse total left shoulder arthroplasty, postop day 0 History of glaucoma History of osteopenia Peripheral artery disease history History of breast cancer Osteoarthritis GI prophylaxis DVT prophylaxis Full code Plan: Patient is admitted under orthopedic services status post left shoulder arthroplasty postop day 0. Patient is continued on nasal cannula currently as she just came to the unit from the postop PACU currently at 100% on 2 L. Patient does not wear oxygen outpatient. Patient has been instructed to continue with incentive spirometer use at least 10 times every hour while awake and will order 1 Home medications reviewed and resumed Recommend repeat labs in a.m. to monitor CBC, BMP, magnesium Will await PT/OT therapy evaluation Recommend sitting up in bed and in the chair more often after postop protocol We will continue to follow with orthopedics during hospitalization. Thank you kindly for this consultation. The impression and plan of care has been dictated by Vero Pozo, Nurse Practitioner as directed. Dr. Lisset MD I have performed a history and examination and MDM of this patient, discussed the same with the dictator, and agree with the dictator's assessment and plan as written ,documented as a scribe. Based on total visit time, I have performed more than 50% of the visit. Past Medical History Past Medical History: Cancer, Eye Disorder, Musculoskeletal Disorder, Osteoarthritis (OA), Vascular Disorder Additional Past Medical History / Comment(s): Hx right breast cancer in 2003- surg, radiation & chemo; hx left breast cancer in 2020- surg & radiation, Hx Diptheria, Glaucoma in right eye, Osteopenia, PAD History of Any Multi-Drug Resistant Organisms: None Reported Past Surgical History: Breast Surgery, Orthopedic Surgery, Tubal Ligation Additional Past Surgical History / Comment(s): Thumb surgery, bilateral breast lumpectomy, bilateral shoulder rotator cuff repair, levi cataract surg Past Anesthesia/Blood Transfusion Reactions: No Reported Reaction Past Psychological History: No Psychological Hx Reported Smoking Status: Former smoker Past Alcohol Use History: Rare Additional Past Alcohol Use History / Comment(s): Quit smoking around 2009, smoked for 40 yrs Past Drug Use History: None Reported - Past Family History Father Family Medical History: Coronary Artery Disease (CAD), Diabetes Mellitus, Deep Vein Thrombosis (DVT), Hypertension Additional Family Medical History / Comment(s): triple bypass, PAD Mother Family Medical History: Cancer Medications and Allergies Home Medications Medication Instructions Recorded Confirmed Type Alendronate Sodium 70 mg PO LEWIS 09/13/19 11/29/24 History Magnesium 400 mg PO HS 09/13/19 11/29/24 History Latanoprost/Pf [Latanoprost 0.005% 1 drop RIGHT EYE QAM 09/20/19 11/29/24 History Eye Drop] Acetaminophen/Diphenhydramine 2 tab PO HS 07/05/23 11/29/24 History [Tylenol PM 500-25mg] Brimonidine Eye Drop (? Dose) 1 drop RIGHT EYE HS 07/05/23 11/29/24 History Calcium Carbonate [Calcium] 600 mg PO QAM 07/05/23 11/29/24 History Exemestane [Aromasin] 25 mg PO QAM 07/05/23 11/29/24 History Melatonin [Melatonin Tr] 10 mg PO HS 07/05/23 11/29/24 History Potassium Gluconate [Potassium 1,190 mg PO HS 07/05/23 11/29/24 History (2.5 MEQ = 600 MG)] Multivitamins, Thera [Multivitamin 1 tab PO QAM 01/16/24 11/29/24 History (formulary)] Psyllium Husk [Metamucil] 0 gm PO HS 01/16/24 11/29/24 History Gabapentin [Neurontin] 1,200 mg PO HS #4 cap 01/23/24 11/29/24 Rx Gabapentin [Neurontin] 300 mg PO QAM #2 cap 01/23/24 11/29/24 Rx Allergies Allergy/AdvReac Type Severity Reaction Status Date / Time codeine AdvReac Unknown Verified 11/29/24 08:51 Physical Exam Vitals: Vital Signs Temp Pulse Resp BP Pulse Ox 11/29/24 12:48 62 14 116/56 97 11/29/24 12:31 66 14 120/57 97 11/29/24 12:15 78 18 119/57 97 11/29/24 12:07 97.1 F L 89 18 123/59 94 L 11/29/24 09:33 68 16 103/55 100 11/29/24 08:53 97.1 F L 77 18 116/56 98 Intake and Output 11/28/24 11/29/24 11/29/24 22:59 06:59 14:59 Intake Total 850 Output Total 100 Balance 750 Intake: IV 850 Output: Estimated Blood Loss 100 Other: Weight 55.4 kg
--- NOTE | 2024-11-29 18:18 | OP ---
OPERATIVE REPORT DATE OF SERVICE : 11/29/2024 PREOPERATIVE DIAGNOSIS: Left shoulder advanced glenohumeral osteoarthrosis. POSTOPERATIVE DIAGNOSES: 1. Left shoulder advanced glenohumeral osteoarthrosis. 2. Left shoulder chronic supraspinatus tear. OPERATION: Left reverse total shoulder arthroplasty. ANESTHESIA: General endotracheal. ESTIMATED BLOOD LOSS: 100 mL. DRAINS: None. COMPLICATIONS: None apparent. DISPOSITION: Postanesthesia care unit. INDICATIONS: Briseida is a very pleasant 79-year-old female with longstanding left shoulder pain. Workup including x-rays and CT scan revealed advanced osteoarthrosis of the left shoulder. At this point, it was felt that she has failed conservative management and she would like to proceed with operative intervention. The risks of procedure were discussed with her in detail. These risks include, but are not limited to, risk of infection, nerve damage, bleeding, pain, instability in the shoulder, loosening of the implants, and deep infection. There is also a small risk of deep vein thrombosis which could lead to fatal pulmonary embolism. The patient understood these risks. All of her questions with regard to the risks of the procedure were answered to her satisfaction. Appropriate informed consent was obtained. DESCRIPTION OF PROCEDURE: The patient was identified in the preoperative holding area. Surgical site was marked by both the patient and myself. She was given 2 g of Ancef IV for prophylactic purposes. She was then transported to the operative suite. She was placed supine on the operating room table. A general anesthetic was then administered, dosed per the Anesthesia Department without apparent complication. An examination under anesthesia was then performed of the left shoulder. She had elevation to 120 degrees. External rotation to the side was to 30 degrees. The patient was then placed into the beach chair position, well-padded in preparation for surgery. Great care was taken to ensure that her cervical spine was in neutral alignment, well-padded and maintained that way throughout the operative procedure. Great care was also taken to ensure that her legs were appropriately padded as well. The patient's left upper extremity was then prepped and draped in the usual sterile fashion. Standard surgical pause was undertaken to ensure that we were operating at the correct site and that appropriate preoperative antibiotics had been given. All staff in the room were in agreement, and then we proceeded. The acromion, AC joint, clavicle, and coracoid were marked with a surgical pen. A planned incision starting at the level of the clavicle and extending distally over the deltopectoral interval approximately 1 cm lateral to the coracoid was marked with a surgical pen. The incision was then made with a 10-blade scalpel. Dissection was carried down sharply to the deltoid fascia. The deltopectoral interval was then identified at the level of the clavicle. A small band retractor was then placed under the proximal deltoid. I then released the deltoid fascia on the lateral aspect of the cephalic vein. The vein was preserved and left in its bed medially. The cephalic vein was protected throughout the entire case. I then identified the clavipectoral fascia. This was incised proximally to the level of the coracoacromial ligament. The coracoacromial ligament was left intact. I then used my finger to spread the interval between the conjoint tendon and the subscapularis. I felt for the axillary nerve, which was readily palpable. I then cleared the subacromial and subdeltoid spaces of bursal and scar tissue. I then utilized a Melgar retractor to hold the deltoid and expose the humeral head. I then proceeded with release of the subscapularis and the anterior-inferior shoulder capsule. The rotator cuff was inspected. She did have a chronic tear of the supraspinatus. The rotator interval was identified. The course of the biceps tendon was also identified. I then tenodesed the biceps to the proximal soft tissue of the bicipital groove. I then released the rotator interval. This was released at the base of the coracoid and then out laterally. The subscapularis and the capsule were released intratendinously. The subscapularis and capsule release extended distally in a lazy-S fashion approximately 1 cm medial to the bicipital groove. I then continued to release the capsule along the inferior neck in a vertical fashion to approximately the 6 o'clock position. Great care was taken to ensure the capsule was always visualized as it was released as to avoid injuring the axillary nerve. I then brought a Contreras picture painter with the arm externally rotated and abducted. I continued to release the capsule inferomedially to the 4 o'clock position. The inferior osteophytes were now removed as well. This was done with a rongeur. I then proceeded with preparation of the humerus. I removed all the goat's titus osteophytes. I then removed the subchondral plate from the superior aspect of the humeral head utilizing a large rongeur. I then used a starting reamer to gain access to the humeral canal. This was approximately 1 cm medial to the rotator cuff insertion and 1 cm posterior to the bicipital groove. I then prepared the humeral canal with hand reaming. I started with a 6 mm reamer and progressed incrementally until firm resistance was encountered. This was at 11 mm. The reamer handle was then left in place. I then utilized a humeral resection guide set at 30 degrees of retrotorsion. The cutting block was then set at the previous insertion of rotator cuff. I then proceeded to osteotomize the humeral head with an oscillating saw. I removed the resection guide and then completed the osteotomy. I then proceeded with trial stem placement. I broached up to a size 11 incrementally. The 11 mm trial broach was then left in place. A bone hook was then used to pull the humerus out laterally. I inspected the joint for any loose bodies. The condition of the cuff was again inspected. She did have a chronic small tear of the supraspinatus. The Bhattman retractor was then placed onto the posterior glenoid rim. The arm was placed in approximately 80 degrees of abduction and in slight flexion on the Contreras stand. I then proceeded to remove the hypertrophic labrum to definitively identify the actual glenoid. I then utilized the mini base plate starting guide. This was placed in the center of the glenoid. The pin was then inserted in approximately 10 degrees of inferior tilt just inferior to the center of the glenoid. I then used the reamer to ream the glenoid. Minimal reaming was done as possible as to preserve as much subchondral bone as possible. She did have some posterior-superior wear. I used a small offset guide. This fit very nicely. I had the leasing representative open a mini base plate with a small augment. The augment was then placed posterosuperiorly. The real base plate was then impacted firmly into the glenoid. I then measured for the central screw. A 30 mm central screw was placed. When the screw was fully seated, the purchase was excellent, and I was able to rotate the scapula through the screwdriver with the screw fully seated. I then proceeded with placing the peripheral locking screws. The inferior screw was a 20 mm screw, the anterior screw a 15 mm screw, and the superior screw was a 15 mm locking screw. I then proceeded with placement of the glenosphere. This shows a 36 mm glenosphere. It was slightly offset inferiorly. The Loomis taper was dried, and then the real glenosphere was impacted into the real base plate securely. I then proceeded to trial. I started with a standard tray and a standard poly. This was a mildly difficult reduction. It was taken through full range of motion. There was no impingement noted. The shoulder was stable. Made a decision to proceed with the standard tray, standard poly. The shoulder was then carefully redislocated. The trial stem and trial base plate and poly were removed. The wound was thoroughly irrigated with sterile saline solution with antibiotic added via pulse lavage. The Irrisept antiseptic solution was utilized at this time as well. I then had the leasing representative open a Biomet mini size 11 stem, a standard tray, and a standard poly for 36 mm glenosphere. The stem was then impacted into the proximal humerus in approximately 30 degrees of retrotorsion. I did place a bone graft from the osteotomized humeral head around the stem as she did have some osteoporotic bone. This provided a secure fit for the stem. The Loomis taper was dried and then the standard tray, standard poly was then impacted onto the real stem. The shoulder was then carefully reduced. Again, it was a mildly difficult reduction. The shoulder was stable throughout her range of motion. There was no impingement noted with range of motion. The conjoint tendon was of usual tension. I did feel for the axillary nerve at this time, which was readily palpable and uninjured. At this point in time, no further work was deemed necessary, and we proceeded with closure. The wound was again thoroughly irrigated with sterile saline solution with antibiotic added via pulse lavage. I did use the remaining Irrisept solution at this point in time. Approximately 500 mg of vancomycin powder was then placed deep. The deltopectoral interval was then reapproximated with interrupted 0 Vicryl sutures. The subcutaneous tissue was irrigated, and the remaining 500 mg of vancomycin powder was placed subcutaneously. The subcutaneous tissue was then closed with 2-0 Vicryl interrupted suture, and the skin was closed with a running 3-0 Quill suture. Dermabond was then applied to the incision. A sterile dressing was applied, and her left upper extremity was placed into a standard sling. All sponge and needle counts were deemed correct prior to closure. The patient tolerated the procedure without apparent complication. She was transferred to the recovery room in stable condition. AKASH / IVAN: [id number] /
--- NOTE | 2024-11-29 19:15 | P.ANPRN ---
Procedure Note - Anesthesia - Nerve Block Performed Left Interscalene Single Time Out Performed: Yes Date of Procedure: 11/29/24 Procedure Start Time: Procedure Stop Time: Location of Patient: PreOp Indication: Acute Post-Operative Pain, Requested by Surgeon Sedation Type: Sedate with meaningful contact maintained Preparation: Sterile Prep Position: Supine Needle Types: Pajunk Needle Gauge: 21 Ultrasound used to visualize needle placement: Yes Ultrasound used to observe medication spread: Yes Blood Aspirated: No Pain Paresthesia on Injection Noted: No Resistance on Injection: Normal Image Stored and Saved: Yes Events: Uneventful and Well Tolerated (Ropivacaine 0.5% 20 cc plus dexamethasone 4 mg)
[2024-11-29] MEDS: MELATONIN 5 MG TABLET PO SCH (21:28)
[2024-11-29] MEDS: GABAPENTIN 400 MG CAP PO SCH (21:28)
[2024-11-29] MEDS: MAGNESIUM OXIDE 400 MG TAB PO SCH (21:28)
[2024-11-29] MEDS: BRIMONIDINE TARTRATE 0.2% DROPS 5 ML BTL RIGHT EYE SCH (21:29)
[2024-11-30 07:21] VITALS: BP 94/52; PULSE 69; RESP 16; TEMP 98.3
[2024-11-30] MEDS: MULTIVITAMINS, THERA 1 EACH TAB PO SCH (07:50)
[2024-11-30] MEDS: CALCIUM CARBONATE 500 MG CHEWABLE PO SCH (07:50)
[2024-11-30] MEDS: HYDROcodone/APAP 7.5-325MG 1 EACH TAB PO PRN (07:50)
[2024-11-30] MEDS: GABAPENTIN 300 MG CAP PO SCH (07:50)
[2024-11-30 09:12] LABS: BUN/Creat Ratio 19.44 Ratio (12.00-20.00); Blood Urea Nitrogen 17.5 mg/dL (9.0-27.0); Calcium 8.5 mg/dL (8.7-10.3); Carbon Dioxide 25.5 mmol/L (21.6-31.8); Chloride 102 mmol/L (96-109); Glucose 104 mg/dL (70-110); Magnesium 1.8 mg/dL (1.5-2.4); Potassium 4.2 mmol/L (3.5-5.5); Sodium 137 mmol/L (135-145)
[2024-11-30 09:21] LABS: Basophils # (A) 0.02 X 10*3/uL (0.00-0.10); Basophils % (A) 0.2 %; Eosinophils # (A) 0.13 X 10*3/uL (0.04-0.35); Eosinophils % (A) 1.2 %; HCT 28.8 % (37.2-46.3); HGB 9.5 g/dL (12.0-15.0); Lymphocytes # (A) 0.99 X 10*3/uL (0.90-5.00); MCH 31.7 pg (27.0-32.0); Mean Platelet Volume 11.4 FL (9.5-12.2); Monocytes # (A) 0.92 X 10*3/uL (0.20-1.00); Monocytes % (A) 8.4 %; NRBC Per 100 WBC 0 X 10*3/uL (0.00-0.01); Neutrophils # (A) 8.83 X 10*3/uL (1.80-7.70); Neutrophils % (A) 80.7 %; Platelet Count 185 X 10*3/uL (140-440); RDW 12.2 % (11.5-14.5); WBC 10.94 X 10*3/uL (4.50-10.00)
[2024-11-30] MEDS: HYDROcodone/APAP 5-325MG 1 EACH TAB PO STA (12:11)
[2024-11-30] MEDS: LATANOPROST 0.005% OPHTH DROPS 2.5 ML BTL RIGHT EYE SCH (12:11)
--- NOTE | 2024-11-30 14:24 | P.DS ---
Providers Attending physician: Kristopher Miller Consults: 11/29/24 13:15 Consult Physician Routine Consulting Provider: Robinson Mercado Consult Reason/Comments: medical management Do you want consulting provider notified?: Yes Primary care physician: Alda Benjamin - Discharge Diagnosis(es) (1) Primary osteoarthritis, left shoulder Patient was admitted to the OR on 11/29/24 to undergo a reverse left total shoulder arthroplasty. She had failed conservative measures as an outpatient and desired to proceed with elective surgery after given informed consent. She underwent the above procedure which she tolerated well without complication. Postoperative hospital course has remained without complication. On day of discharge she is afebrile, vital signs stable, labs within acceptable ranges, tolerating by mouth meds and diet, voiding without difficulty, positive flatus, denies abdominal pain or calf pain, pain is controlled on oral pain medication and has no new complaints. Wound is benign, neurovascular status is intact, calves are soft and nontender, abdomen soft and nontender. Review of systems is negative for numbness, tingling, fever, chills, chest pain, shortness of breath, nausea, vomiting, dizziness, headaches, slurred speech or other. Current Visit: Yes Status: Acute Priority: Medium Procedures: Left Reverse TSA Patient Condition at Discharge: Good Plan - Discharge Summary Discharge Rx Participant: No New Discharge Prescriptions: New HYDROcodone/APAP 7.5-325MG [Monroe 7.5-325] 1 - 2 tab PO Q6HR PRN #32 tab PRN Reason: Pain Doxycycline Hyclate 100 mg PO BID 5 Days #10 cap Docusate [Colace] 100 mg PO BID #60 capsule Ondansetron [Zofran] 4 mg PO Q8HR PRN #21 tab PRN Reason: Nausea No Action Alendronate Sodium 70 mg PO LEWIS Magnesium 400 mg PO HS Latanoprost/Pf [Latanoprost 0.005% Eye Drop] 1 drop RIGHT EYE QAM Calcium Carbonate [Calcium] 600 mg PO QAM Brimonidine Eye Drop (? Dose) 1 drop RIGHT EYE HS Potassium Gluconate [Potassium (2.5 MEQ = 600 MG)] 1,190 mg PO HS Melatonin [Melatonin Tr] 10 mg PO HS Multivitamins, Thera [Multivitamin (formulary)] 1 tab PO QAM Gabapentin [Neurontin] 1,200 mg PO HS #4 cap Exemestane [Aromasin] 25 mg PO QAM Acetaminophen/Diphenhydramine [Tylenol PM 500-25mg] 2 tab PO HS Psyllium Husk [Metamucil] 0 gm PO HS Gabapentin [Neurontin] 300 mg PO QAM #2 cap Discharge Medication List Alendronate Sodium 70 mg PO LEWIS 09/13/19 [History] Magnesium 400 mg PO HS 09/13/19 [History] Latanoprost/Pf [Latanoprost 0.005% Eye Drop] 1 drop RIGHT EYE QAM 09/20/19 [H istory] Acetaminophen/Diphenhydramine [Tylenol PM 500-25mg] 2 tab PO HS 07/05/23 [History] Brimonidine Eye Drop (? Dose) 1 drop RIGHT EYE HS 07/05/23 [History] Calcium Carbonate [Calcium] 600 mg PO QAM 07/05/23 [History] Exemestane [Aromasin] 25 mg PO QAM 07/05/23 [History] Melatonin [Melatonin Tr] 10 mg PO HS 07/05/23 [History] Potassium Gluconate [Potassium (2.5 MEQ = 600 MG)] 1,190 mg PO HS 07/05/23 [History] Multivitamins, Thera [Multivitamin (formulary)] 1 tab PO QAM 01/16/24 [History] Psyllium Husk [Metamucil] 0 gm PO HS 01/16/24 [History] Gabapentin [Neurontin] 1,200 mg PO HS #4 cap 01/23/24 [Rx] Gabapentin [Neurontin] 300 mg PO QAM #2 cap 01/23/24 [Rx] Docusate [Colace] 100 mg PO BID #60 capsule 11/30/24 [Rx] Doxycycline Hyclate 100 mg PO BID 5 Days #10 cap 11/30/24 [Rx] HYDROcodone/APAP 7.5-325MG [Monroe 7.5-325] 1 - 2 tab PO Q6HR PRN #32 tab 11/30/24 [Rx] Ondansetron [Zofran] 4 mg PO Q8HR PRN #21 tab 11/30/24 [Rx] Follow up Appointment(s)/Referral(s): Kristopher Miller MD [STAFF PHYSICIAN] - 01/01/25 10:00 am Patient Instructions/Handouts: *Surgery [facility] - (Adv Ortho) Shoulder Discharge Instructions Activity/Diet/Wound Care/Special Instructions: non weightbearing maintain sling keep wound clean and dry take meds as directed may shower in 3 days if no bleeding f/u in office Discharge Disposition: HOME SELF-CARE
--- NOTE | 2024-12-02 22:46 | P.PN ---
Subjective Progress Note Date: 11/30/24 - Reason for Consult Consult date: 11/29/24 Medical management left shoulder arthroplasty - History of Present Illness This is a 79-year-old female who was admitted under orthopedic services and is status post reverse total left shoulder arthroplasty postop day 0. Patient follows with Dr. Coyne in the outpatient setting with a past medical history of breast cancer, musculoskeletal disorder, osteoarthritis, vascular disorder, right eye glaucoma, PAD, former smoker, rarely drinks and denies any illicit drug use. Patient did undergo presurgical clearance testing with primary care provider prior to the surgery. Patient reports has been following with Dr. Miller outpatient and has been having ongoing issues regarding the left s adarshulder. Labs reviewed from presurgical within normal limits. hemoglobin at that time was 12.6, platelets 213. Patient is currently maintained on 2 L nasal cannula and oxygenation saturations are above 97% patient is postanesthesia still on protocol postop. Patient does not wear oxygen outpatient and strongly encouraged incentive spirometer use and sitting up and sitting up in the chair more often. Patient denies any chest pain or shortness of breath. Patient is afebrile and blood pressure within normal limits. Will review home medications and resume as appropriate. 11/30/2024 Patient is seen and evaluated in follow-up this morning doing relatively well. Patient reports she did not sleep much overnight and is eager to go home. Patient is being cleared by orthopedics for discharge today. Patient with incentive spirometer encouraged to continue using at least 10 times every hour while awake. Continue with pain management and bowel regimen per orthopedics. Patient to continue with restrictions per orthopedics and left shoulder sling. Review of systems: Constitutional: reports of fatigue, no fever, or chills Cardiovascular: No reports of chest pain or palpitations Respiratory: No reports of shortness of breath or cough GI: No reports of nausea, vomiting, or diarrhea, reports passing some gas : No reports of dysuria or retention Neurovascular: reports of generalized weakness and left shoulder pain All medications have been reviewed The rest of the 14-point review of systems is negative. PHYSICAL EXAMINATION: GENERAL: The patient is alert and oriented x3, not in any acute distress. Well developed, thin built, elderly appearing HEENT: Pupils are round and equally reacting to light. EOMI. No scleral icterus. No conjunctival pallor. Normocephalic, atraumatic. No pharyngeal erythema. No thyromegaly. CARDIOVASCULAR: S1 and S2 present. No murmurs, rubs, or gallops. PULMONARY: Diminished breath sounds bilaterally otherwise chest is clear to auscultation, no wheezing or crackles. ABDOMEN: Soft, thin, nontender, nondistended, normoactive bowel sounds. No palpable organomegaly. MUSCULOSKELETAL: No joint swelling or deformity. EXTREMITIES: No cyanosis, clubbing, or pedal edema. Left shoulder sling and dressing noted that is dry and intact, positive cap refill less than 3 and principal engineer strength of the left hand is 4/5 NEUROLOGICAL: Gross neurological examination did not reveal any focal deficits. SKIN: No rashes. Assessment: Status post reverse total left shoulder arthroplasty History of glaucoma History of osteopenia Peripheral artery disease history History of breast cancer Osteoarthritis GI prophylaxis DVT prophylaxis Full code Plan: Patient is admitted under orthopedic services status post left shoulder arthroplasty Patient has been instructed to continue with incentive spirometer use at least 10 times every hour while awake. Encourage patient to take home and continue using Home medications reviewed and resumed Recommend sitting up in bed and in the chair more often after postop protocol Patient reports will be going home today. Patient is medically stable once cleared by orthopedics We will continue to follow with orthopedics during hospitalization. Thank you kindly for this consultation. The impression and plan of care has been dictated by Vero Pozo, Nurse Practitioner as directed. Dr. Lisset MD I have performed a history and examination and MDM of this patient, discussed the same with the dictator, and agree with the dictator's assessment and plan as written ,documented as a scribe. Based on total visit time, I have performed more than 50% of the visit. Objective - Vital Signs Vital signs: Vital Signs Temp 98.3 F 11/30/24 06:50 Pulse 69 11/30/24 08:00 Resp 16 11/30/24 08:00 BP 94/52 11/30/24 06:50 Pulse Ox 96 11/30/24 06:50 FiO2 Intake & Output 11/29/24 11/30/24 11/30/24 18:59 06:59 18:59 Intake Total 1440 400 Output Total 100 Balance 1340 400 Weight 55.4 kg Intake: IV 850 Intake, IV Titration 350 Amount Lactated Ringers 1,000 ml 300 @ 100 mls/hr IV .Q10H [facility] Rx#:[id number] ceFAZolin 2 gm In Sodium 50 Chloride 0.9% 50 ml @ 100 mls/hr IVPB Q8H [facility] Rx#: [id number] Oral 240 400 Output: Estimated Blood Loss 100 Other: Voiding Method Toilet Toilet # Voids 1 1 1 - Labs CBC & Chem 7: 11/30/24 05:51 11/30/24 05:51 Labs: Abnormal Lab Results - Last 24 Hours (Table) 11/30/24 11/30/24 Range/Units 05:51 05:51 WBC 10.94 H (4.50-10.00) X 10*3/uL RBC 3.00 L (4.10-5.20) X 10*6/uL Hgb 9.5 L (12.0-15.0) g/dL Hct 28.8 L (37.2-46.3) % Immature Gran # 0.05 H (0.00-0.04) X 10*3/uL Neutrophils # 8.83 H (1.80-7.70) X 10*3/uL Calcium 8.5 L (8.7-10.3) mg/dL
== END 2024-11-30 16:00 | disposition home or self-care (01) ==
LOC: OR 08:16 → 4SSUR 12:01 → OR 11-30 16:00
PROVIDERS: ATTEND Orthopaedic Surgery Sports Medicine
DX: M19.012 Primary osteoarthritis, left shoulder (principal); G89.18 Other acute postprocedural pain; I73.9 Peripheral vascular disease, unspecified; G62.9 Polyneuropathy, unspecified; M85.80 Other specified disorders of bone density and structure, unspecified site; K21.9 Gastro-esophageal reflux disease without esophagitis; Z79.83 Long term (current) use of bisphosphonates; Z79.811 Long term (current) use of aromatase inhibitors; Z79.899 Other long term (current) drug therapy; Z87.891 Personal history of nicotine dependence; Z85.3 Personal history of malignant neoplasm of breast; Z88.5 Allergy status to narcotic agent
CPT/HCPCS: 23472; 64415; 80048; 83735; 85025; 73020; C1776; J2250; J3370; J0330; J1100; J2710; J0690 ×2; J2405; J2003; J3010; J2795; J2704; J2371; J1596

== ENCOUNTER → 2025-03-06 | Outpatient (CLI) | payer MEDICARE ==
--- NOTE | 2025-03-07 08:47 | BD ---
EXAMINATION TYPE: Axial Bone Density DATE OF EXAM: 03/06/2025 CLINICAL HISTORY: 79 years old Female. ICD-10 CODE: M8100 OSTEOPENIA , Additional History: Height: 5 ft 3 1/2 in Weight: 124 FRAX RISK QUESTIONS: no Alcohol (3 or more units per day): Family History (Parent hip fracture): no Glucocorticoids (More than 3mos): no (Ex: prednisone, prednisolone, methylprednisolone, dexamethasone, and hydrocortisone). History of Fracture in Adulthood: yes Secondary Osteoporosis: 1. Type 1 Diabetes: no 2. Hyperthyroidism: no 3. Menopause before 45: no 4. Malnutrition: no 5. Chronic liver disease: no Rheumatoid Arthritis: no Current Tobacco Use: no RISK FACTORS HISTORY OF: Surgery to Spine/Hip(right/left)/Wrist (right/left): spinal fusion When: 2023 MEDICATIONS: Thyroid Medications: none Osteoporosis Medications: yes Which medication: fosamax How Long: EXAM MEASUREMENTS: Bone mineral density about the R hip (g/cm2): 0.910 Bone mineral density about the L hip (g/cm2): 0.782 T Score values are as follows: -----R Neck: -0.9 -----L Neck: -1.8 -----R Total: -0.9 -----L Total: -1.4 Z Score values are as follows: -----R Neck: 1.5 -----L Neck: 0.6 -----R Total: 1.4 -----L Total: 0.9 Bone mineral density has: decreased -8.9 % since study of: 2020 Bone mineral density about the L Wrist (g/cm2): 0.412 T Score values are as follows: -----Dist. R+U: -1.1 -----Prox. R+U: -1.2 -----Radius total: -1.1 Z Score values are as follows: -----Dist. R+U: 1.8 -----Prox. R+U: 1.6 -----Radius total: 1.8 first time wrist has been done FRAX%s: The graph provided illustrates a 19.2 % chance for a major osteoporotic fx and a 5.4 % chance for the hips probability for fx in 10 years time. IMPRESSION: Osteopenia (T Score between -2.5 and -1). There is slightly increased risk of fracture and the patient may be considered for treatment. Re-Screen 2-5 years. NOTE: T-SCORE=SD OF THE YOUNG ADULT MEAN. [facility], , 03/07/2025 8:45 AM
== END | disposition home or self-care (01) ==
LOC: RADBDWWP 15:19
PROVIDERS: ATTEND Internal Medicine Hematology & Oncology
DX: C50.412 Malignant neoplasm of upper-outer quadrant of left female breast (principal); C50.411 Malignant neoplasm of upper-outer quadrant of right female breast; M85.89 Other specified disorders of bone density and structure, multiple sites; M81.0 Age-related osteoporosis without current pathological fracture; M25.529 Pain in unspecified elbow; Z17.0 Estrogen receptor positive status [ER+]
CPT/HCPCS: 77080

== ENCOUNTER → 2025-04-08 | Outpatient (CLI) | payer MEDICARE ==
--- NOTE | 2025-04-08 10:36 | MM ---
Reason for Exam: Screening (asymptomatic). Last mammogram was performed 2 year(s) and 3 month(s) ago. Patient History: Menarche at age 12. First Full-Term at age 17. Postmenopausal. Breast cancer, right, age 59. Breast cancer, left, age 76. Previous chest radiation therapy at age 59. Previous chemotherapy at age 59. 11/30/2003, Lumpectomy on the Right side. 07/05/2021, Lumpectomy on the Left side. 06/21/2021, Malignant US biopsy breast VAD LT - 2 on the left side. Core Biopsy on the Right side. Excisional Biopsy on the Right side. 10/23/2004, Malignant Stereotactic Core Biopsy on the right side. Maternal aunt had breast cancer, age 40. Mother had breast cancer, age 70. Prior Study Comparison: 07/01/2021 Left MG diagnostic mammo LT w CAD - 2, [facility]. 06/30/2022 Bilateral MG 3D screening mammo w/cad, [facility]. 01/03/2023 Bilateral MG 3D diag mammo w/cad [place], [facility]. Tissue Density: There are scattered areas of fibroglandular density. Findings: Analyzed By CAD. Surgical clips bilaterally. Benign appearing consultations bilaterally. Right breast: There is no suspicious group of microcalcifications or new suspicious mass. Left breast: There is no suspicious group of microcalcifications or new suspicious mass. Overall Assessment: Negative, BI-RAD 1 Management: Screening Mammogram of both breasts in [address] [facility] will attempt to contact patient to return for supplemental views and ultrasound if indicated. Patient should continue monthly self-breast exams. A clinical breast exam by your physician is recommended on an annual basis. This exam should not preclude additional follow-up of suspicious palpable abnormalities. Note on Tere scores and lifetime risk: 1. A Tere score greater than 3% is considered moderate risk. If this is the case, consider specialist referral to assess eligibility for a risk reducing agent. 2. If overall lifetime risk for the development of breast cancer is 20% or higher, the patient may qualify for future screening with alternating mammogram and breast MRI. [facility], , 04/08/2025 10:30 AM. Electronically signed and approved by: Ector Reyes DO
== END | disposition home or self-care (01) ==
LOC: RADMAMWWP 09:56
PROVIDERS: ATTEND Internal Medicine Hematology & Oncology
DX: Z12.31 Encounter for screening mammogram for malignant neoplasm of breast (principal); M81.0 Age-related osteoporosis without current pathological fracture; Z85.3 Personal history of malignant neoplasm of breast; R92.323 Mammographic fibroglandular density, bilateral breasts; Z78.0 Asymptomatic menopausal state; Z80.3 Family history of malignant neoplasm of breast
CPT/HCPCS: 77063; 77067

== ENCOUNTER → 2025-05-20 | Outpatient (CLI) | payer MEDICARE ==
--- NOTE | 2025-05-20 12:25 | CT ---
EXAMINATION TYPE: CT shoulder LT wo con DATE OF EXAM: 05/20/2025 10:30 AM COMPARISON: None. CLINICAL INDICATION: Female, 80 years old with history of LEFT Z96.612 PRESENCE OF LEFT ARTIFICIAL SH OULDER, Evaluate for stress fx of left scapular spine. Shoulder replacement x6mo ago. Pt c/o ongoing pain., TECHNIQUE: Axial CT was performed with sagittal and coronal reformats. 3D reconstruction performed on a separate workstation. IV CONTRAST: , patient injected with mL of . (None if empty) CT DLP: 250.9 mGycm, Automated exposure control for dose reduction was used. FINDINGS: Total left shoulder arthroplasty noted to be in place with glenohumeral component appearing well seat ed. Streak artifact limits evaluation. Proximal humeral intramedullary component does not demonstrate evidence for periprosthetic lucency or lucency about the tip of the prosthesis. There is no evidence for acute fracture or dislocation. Mild AC joint arthropathy. Chronic fibrotic-type changes left upp er lobe which could be on the basis of chronic infiltrate or posttreatment changes. IMPRESSION: 1. No evidence of fracture or dislocation. 2. Postoperative changes of total left glenohumeral prosthesis. [facility], , 05/20/2025 12:22 PM
== END | disposition home or self-care (01) ==
LOC: RADCTMAIN 09:37
PROVIDERS: ATTEND Orthopaedic Surgery Sports Medicine
DX: M25.512 Pain in left shoulder (principal); Z96.612 Presence of left artificial shoulder joint